=== PATIENT | male | born 1955 | race Caucasian/White ===

== ENCOUNTER 2024-05-22 07:27 | Emergency (ER) | payer MEDICARE, OTHER, SELFPAY ==
[2024-05-22] VITALS (73 sets, daily range): BP systolic 107–153; BP diastolic 62–91; PULSE 89–114; RESP 11–39; TEMP 36.4; O2SAT 89–100; BMI 19.0
--- NOTE | 2024-05-22 07:41 | DI.RAD.S_ITS ---
PROCEDURE: XR CHEST 1V INDICATIONS: Shortness of breath TECHNIQUE: One view of the chest was acquired. COMPARISON: None. FINDINGS: Surgical changes and devices: None. Lungs and pleura: Hazy airspace opacity in right infrahilar region is seen. Small left infrahilar infiltrate/atelectasis is also noted. No pleural effusions or pneumothorax. Mediastinum: Mediastinal contours appear normal. Heart size is normal. Bones and chest wall: No suspicious bony lesions. Overlying soft tissues appear unremarkable. IMPRESSION: Small bilateral infrahilar infiltrate/atelectasis. No pleural effusion or pneumothorax. Dictated by: Bo May M.D. on 05/22/2024 at 8:02 Approved by: Bo May M.D. on 05/22/2024 at 8:03
--- NOTE | 2024-05-22 07:48 | EKG_ITS ---
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
[2024-05-22] MEDS: ALBUTEROL 2.5 MG/3 ML NEB (ADULT) INH (07:59)
[2024-05-22 08:16] LABS: Add Manual Diff / Slide Review NO; Basophils Absolute Auto 100 /uL (0-100); Basophils Percent Auto 0.7 % (0-2); Eosinophils Absolute Auto 0 /uL (0-450); Eosinophils Percent Auto 0.1 % (2-4); Hematocrit 40.6 % (41-53); Hemoglobin 13.6 g/dL (13.5-17.5); Lymphocytes Absolute Auto 1200 /uL (1100-4500); Lymphocytes Percent Auto 11.7 % (25-40); Mean Corpuscular HGB Conc 33.6 % (30-36); Mean Corpuscular Volume 95.3 fL (80-100); Monocytes Absolute Auto 700 /uL (0-900); Neutrophils Absolute Auto 8100 /uL (1500-7000); Neutrophils Percent Auto 80.5 % (50-75); Platelet Count 141 X10^3/uL (150-400); Red Blood Cell Count 4.26 X10^6/uL (4.5-5.9); Red Cell Distribution Width 14.9 % (11.6-14.8)
[2024-05-22 08:19] LABS: INR 1.5 (0.9-1.3); Prothrombin Time 17.3 SECONDS (9.4-12.5)
[2024-05-22 08:29] LABS: Alanine Aminotransferase 358 IU/L (<50); Albumin 3.8 g/dL (3.5-5.0); Albumin Globulin Ratio 1.5 (1.0-2.8); Alkaline Phosphatase 123 U/L (38-126); Aspartate Aminotransferase 291 IU/L (17-59); BUN Creatinine Ratio 23.8 (6-22); Bilirubin Total 1.3 mg/dL (0.2-1.3); Blood Urea Nitrogen 39 mg/dL (9-20); Calcium 9.4 mg/dL (8.4-10.2); Carbon Dioxide 16 mmol/L (22-32); Chloride 108 mmol/L (98-107); Estimated Glomerular Filt Rate 45 mL/min (>60); Globulin 2.6 g/dL (1.7-4.1); Glucose 139 mg/dL (80-110); HEMOLYSIS < 15 (0-50); Potassium 4.5 mmol/L (3.4-5.1); Sodium 136 mmol/L (137-145); Total Protein 6.4 g/dL (6.3-8.2)
[2024-05-22 08:39] LABS: Lactate (Lactic Acid) 4.3 mmol/L (0.7-2.1)
[2024-05-22 09:00] LABS: Adenovirus Not Detected (Not Detect); B. parapertussis Not Detected (Not Detecte); Bordetella pertussis Not Detected (Not Detect); Chlamydophila pneumoniae Not Detected (Not Detect); Coronavirus 229E Not Detected (Not Detect); Coronavirus HKU1 Not Detected (Not Detect); Coronavirus NL 63 Not Detected (Not Detect); Coronavirus OC43 Not Detected (Not Detect); Human Metapneumovirus Not Detected (Not Detect); Human Rhinovirus/Enterovirus Not Detected (Not Detect); Influenza A Not Detected (Not Detect); Influenza B Not Detected (Not Detect); Mycoplasma pneumoniae Not Detected (Not Detect); Parainfluenza Virus 1 Not Detected (Not Detect); Parainfluenza Virus 2 Not Detected (Not Detect); Parainfluenza Virus 3 Not Detected (Not Detect); Parainfluenza Virus 4 Not Detected (Not Detect); Respiratory Syncytial Virus Not Detected (Not Detect); SARS- CoV-2 Not Detected (Not Detecte)
[2024-05-22 09:01] LABS: NT-proBNP (BNP-Adult 18+) 43300 pg/mL (<125)
--- NOTE | 2024-05-22 09:12 | ED_ITS ---
HPI - SOB/Dyspnea General Chief Complaint: Shortness of Breath/Dyspnea Stated Complaint: SOB Time Seen by Provider: 05/22/24 09:12 Source: patient, RN notes reviewed and old records reviewed Mode of arrival: Ambulatory Limitations: no limitations History of Present Illness HPI Narrative: 68-year-old male with history of chronic tobacco use presents with complaint of shortness of breath that started fairly abruptly about 3 or 4 days ago, patient states no chest pain or pressure, no fevers or chills, he has had a little bit of congestion and cough which he states has been mostly nonproductive. States no color to the small amount that has been productive. Denies any nausea or vomiting. Has had some diaphoresis. States any sort of movement or trying to walk around makes it much worse. States it is better when he is lying flat. Denies any swelling of his extremities. Denies any issues with bowel movements or urination. Has not had similar symptoms in the past. Patient does not have any daily medications, has not seen a physician in about 20 years, no prior surgeries. Smokes about half pack to a pack per day, 3-5 beers daily, no recreational drugs or marijuana. He is accompanied by his . Discussed patient's code status he states that he will discuss it when we get to that point. He is presumed full code until instructed otherwise. is at bedside for this discussion. They both state they have never had this discussion before. Patient does not have a primary care physician. Patient was noted to have systolic ejection murmur known history that patient is aware. Related Data Allergies Allergy/AdvReac Type Severity Reaction Status Date / Time No Known Drug Allergies Allergy Verified 05/22/24 07:42 Review of Systems Review of Systems ROS Unobtainable: All systems reviewed & are unremarkable except as noted in HPI and below Patient History Social History Smoking Status: Current every day smoker Smoking Status: Current every day smoker alcohol intake frequency: 3 or more drinks per day Substance Use Type: does not use Exam Narrative Exam Narrative: GENERAL: Alert and oriented x three, thin elderly appearing male in moderate distress. No diaphoresis. HEENT: Head normocephalic, atraumatic, EOMI, pupils reactive, face symmetric, moist mucous membranes NECK: Supple, full range of motion CARDIOVASCULAR: Tachycardic but regular rate and rhythm with 3/6 systolic ejection murmur best heard at the left lateral chest. no rubs, no gallops. No edema bilateral lower extremities. RESPIRATORY: Breath sounds equal bilaterally, no wheezes rales or rhonchi. No tachypnea or accessory muscle use. ABDOMEN: Soft, nontender. Normoactive bowel sounds all 4 quadrants. No guarding or rebound, rigidity, no mass : No CVA tenderness EXTREMITIES: Normal range of motion, no clubbing or edema. Neurovascularly intact NEUROLOGICAL: Cranial nerves II through XII grossly intact. Moving all extremities SKIN: Warm, dry, no petechiae, no rashes or lesions. Initial Vital Signs Initial Vital Signs: Vital Signs Pulse Rate 109 H 05/22/24 07:36 Respiratory Rate 30 H 05/22/24 07:36 Course Orders Ordered: ED Orders 05/22/24 07:41 XR chest 1V Stat EKG-12 Lead Stat Measure peak expiratory flow ONCE RT Consult Eval and Treat NOW 05/22/24 07:57 Complete Blood Count AUTO DIFF Stat Comprehensive Metabolic Panel Stat Lactate (Lactic Acid) Stat NT-proBNP (BNP-Adult 18+) Stat Prothrombin Time INR Stat Troponin I Stat 05/22/24 07:59 Respiratory Panel (Film Array) Stat 05/22/24 09:20 CT angio chest PE protocol Stat 05/22/24 09:30 PTT Partial Thromboplastin Esteban Q6H 05/22/24 09:55 Trop I [Troponin I] Stat 05/22/24 10:16 EKG-12 Lead Routine 05/22/24 10:39 EC echo doppler complete Stat 05/22/24 14:49 PTT Partial Thromboplastin Esteban Q6H 05/22/24 21:30 PTT Partial Thromboplastin Esteban Q6H 05/23/24 03:30 PTT Partial Thromboplastin Esteban Q6H 05/23/24 05:00 Hemoglobin and Hematocrit DAILY Platelet Count DAILY 05/24/24 05:00 Hemoglobin and Hematocrit DAILY Platelet Count DAILY Heparin Sodium/Dextrose (Heparin Drip) 25,000 unit in 500 mls @ 13.608 mls/hr IV CONT SIMI; Protocol Last Admin: 05/22/24 09:38 Dose: 12 units/kg/hr, 13.608 mls/hr Documented By: RB Co-signed By: KM Discontinued Medications Albuterol (Albuterol 2.5 Mg/3 Ml Neb (Adult)) 2.5 mg INH NOW ONE Stop: 05/22/24 07:55 Last Admin: 05/22/24 07:59 Dose: 2.5 mg Documented By: KIERA Furosemide (Furosemide 40 Mg/4 Ml Vial) 40 mg IV NOW ONE Stop: 05/22/24 09:21 Last Admin: 05/22/24 09:33 Dose: 40 mg Documented By: RB Heparin Sodium (Porcine) (Heparin 5,000 Unit/Ml Vial) 3,500 unit 60 unit/kg (3500 unit) IV NOW ONE Stop: 05/22/24 09:21 Last Admin: 05/22/24 09:36 Dose: 3,500 unit Documented By: RB Heparin Sodium (Porcine) (Heparin 5,000 Unit/Ml Vial) 1,500 unit 25 unit/kg (1500 unit) IV NOW ONE Stop: 05/22/24 15:19 Vital Signs Vital signs: Vital Signs - 8 hr 05/22/24 07:36 05/22/24 07:37 05/22/24 07:38 Temperature 97.6 F Pulse Rate 109 H 108 H 107 H Respiratory Rate 30 H 20 27 H Blood Pressure 121/67 Pulse Oximetry 100 100 Oxygen Delivery Method Room Air 05/22/24 07:38 05/22/24 08:00 05/22/24 08:00 Temperature Pulse Rate 105 H Respiratory Rate 25 H Blood Pressure 121/67 133/74 Pulse Oximetry 97 Oxygen Delivery Method 05/22/24 08:03 05/22/24 08:30 05/22/24 08:30 Temperature Pulse Rate 108 H 101 H Respiratory Rate 24 18 Blood Pressure 120/67 Pulse Oximetry 100 95 Oxygen Delivery Method Room Air 05/22/24 09:00 05/22/24 09:00 05/22/24 09:15 Temperature Pulse Rate 102 H 102 H Respiratory Rate 23 27 H Blood Pressure 122/75 Pulse Oximetry 97 99 Oxygen Delivery Method 05/22/24 09:15 05/22/24 09:20 05/22/24 09:20 Temperature Pulse Rate 102 H Respiratory Rate 30 H Blood Pressure 121/76 118/79 Pulse Oximetry 96 Oxygen Delivery Method 05/22/24 09:25 05/22/24 09:25 05/22/24 09:30 Temperature Pulse Rate 103 H 101 H Respiratory Rate 27 H 26 H Blood Pressure 119/69 Pulse Oximetry 98 98 Oxygen Delivery Method 05/22/24 09:30 05/22/24 09:35 05/22/24 09:35 Temperature Pulse Rate 101 H Respiratory Rate 28 H Blood Pressure 111/75 113/74 Pulse Oximetry 96 Oxygen Delivery Method 05/22/24 09:40 05/22/24 09:40 05/22/24 09:57 Temperature Pulse Rate 103 H 101 H Respiratory Rate 22 27 H Blood Pressure 118/77 Pulse Oximetry 97 96 Oxygen Delivery Method 05/22/24 09:57 05/22/24 10:00 05/22/24 10:00 Temperature Pulse Rate 101 H Respiratory Rate 36 H Blood Pressure 117/71 125/74 Pulse Oximetry 96 Oxygen Delivery Method 05/22/24 10:05 05/22/24 10:05 05/22/24 10:10 Temperature Pulse Rate 114 H 94 H Respiratory Rate 39 H 32 H Blood Pressure 142/91 H Pulse Oximetry 96 89 L Oxygen Delivery Method 05/22/24 10:10 05/22/24 10:16 05/22/24 10:16 Temperature Pulse Rate 102 H Respiratory Rate 24 Blood Pressure 153/89 H 119/76 Pulse Oximetry 99 Oxygen Delivery Method 05/22/24 10:20 05/22/24 10:20 05/22/24 10:25 Temperature Pulse Rate 102 H Respiratory Rate 24 Blood Pressure 121/75 121/75 Pulse Oximetry 99 Oxygen Delivery Method 05/22/24 10:25 05/22/24 10:30 05/22/24 10:30 Temperature Pulse Rate 100 H 101 H Respiratory Rate 25 H 17 Blood Pressure 131/80 Pulse Oximetry 96 97 Oxygen Delivery Method 05/22/24 10:35 05/22/24 10:35 05/22/24 10:40 Temperature Pulse Rate 99 H Respiratory Rate 22 Blood Pressure 123/74 125/85 Pulse Oximetry 96 Oxygen Delivery Method 05/22/24 10:40 05/22/24 10:45 05/22/24 10:45 Temperature Pulse Rate 99 H 99 H Respiratory Rate 27 H Blood Pressure 121/77 Pulse Oximetry 97 94 Oxygen Delivery Method 05/22/24 10:50 05/22/24 10:50 05/22/24 10:55 Temperature Pulse Rate 98 H Respiratory Rate 27 H Blood Pressure 118/77 116/77 Pulse Oximetry 96 Oxygen Delivery Method 05/22/24 10:55 05/22/24 11:00 05/22/24 11:00 Temperature Pulse Rate 99 H 100 H Respiratory Rate Blood Pressure 121/80 Pulse Oximetry 95 94 Oxygen Delivery Method 05/22/24 11:05 05/22/24 11:05 05/22/24 11:10 Temperature Pulse Rate 97 H Respiratory Rate Blood Pressure 123/81 125/75 Pulse Oximetry 95 Oxygen Delivery Method 05/22/24 11:10 05/22/24 11:15 05/22/24 11:15 Temperature Pulse Rate 96 H 97 H Respiratory Rate 20 19 Blood Pressure 124/77 Pulse Oximetry 97 96 Oxygen Delivery Method 05/22/24 11:20 05/22/24 11:20 05/22/24 11:25 Temperature Pulse Rate 97 H Respiratory Rate 23 Blood Pressure 122/76 118/74 Pulse Oximetry Oxygen Delivery Method 05/22/24 11:25 05/22/24 11:30 05/22/24 11:30 Temperature Pulse Rate 95 H 95 H Respiratory Rate 17 23 Blood Pressure 119/76 Pulse Oximetry Oxygen Delivery Method 05/22/24 11:35 05/22/24 11:35 05/22/24 11:40 Temperature Pulse Rate 99 H Respiratory Rate 25 H Blood Pressure 123/80 125/83 Pulse Oximetry Oxygen Delivery Method 05/22/24 11:40 05/22/24 12:00 05/22/24 12:00 Temperature Pulse Rate 97 H 95 H Respiratory Rate 27 H 20 Blood Pressure 125/67 Pulse Oximetry 96 Oxygen Delivery Method 05/22/24 12:05 05/22/24 12:05 05/22/24 12:10 Temperature Pulse Rate 96 H Respiratory Rate 24 Blood Pressure 112/67 138/71 Pulse Oximetry 99 Oxygen Delivery Method 05/22/24 12:10 05/22/24 12:15 05/22/24 12:15 Temperature Pulse Rate 95 H 94 H Respiratory Rate 30 H 18 Blood Pressure 126/69 Pulse Oximetry 98 97 Oxygen Delivery Method 05/22/24 12:20 05/22/24 12:20 05/22/24 12:25 Temperature Pulse Rate 94 H Respiratory Rate 24 Blood Pressure 116/69 119/73 Pulse Oximetry 99 Oxygen Delivery Method 05/22/24 12:25 05/22/24 12:30 05/22/24 12:30 Temperature Pulse Rate 96 H 101 H Respiratory Rate 30 H 33 H Blood Pressure 129/78 Pulse Oximetry 98 96 Oxygen Delivery Method 05/22/24 12:35 05/22/24 12:35 05/22/24 12:40 Temperature Pulse Rate 97 H Respiratory Rate 19 Blood Pressure 123/70 126/73 Pulse Oximetry 97 Oxygen Delivery Method 05/22/24 12:40 05/22/24 12:45 05/22/24 12:45 Temperature Pulse Rate 93 H 93 H Respiratory Rate 16 16 Blood Pressure 117/67 Pulse Oximetry 96 99 Oxygen Delivery Method 05/22/24 12:50 05/22/24 12:50 05/22/24 12:55 Temperature Pulse Rate 92 H Respiratory Rate 28 H Blood Pressure 116/68 113/69 Pulse Oximetry 100 Oxygen Delivery Method 05/22/24 12:55 05/22/24 13:00 05/22/24 13:00 Temperature Pulse Rate 93 H 94 H Respiratory Rate 28 H 19 Blood Pressure 132/68 Pulse Oximetry 98 97 Oxygen Delivery Method 05/22/24 13:05 05/22/24 13:05 05/22/24 13:10 Temperature Pulse Rate 93 H Respiratory Rate 14 Blood Pressure 122/70 119/71 Pulse Oximetry 97 Oxygen Delivery Method 05/22/24 13:10 05/22/24 13:15 05/22/24 13:15 Temperature Pulse Rate 93 H 94 H Respiratory Rate 23 16 Blood Pressure 117/67 Pulse Oximetry 99 97 Oxygen Delivery Method 05/22/24 13:20 05/22/24 13:20 05/22/24 13:25 Temperature Pulse Rate 92 H 92 H Respiratory Rate 15 19 Blood Pressure 120/69 Pulse Oximetry 97 98 Oxygen Delivery Method 05/22/24 13:25 05/22/24 13:30 05/22/24 13:30 Temperature Pulse Rate 92 H Respiratory Rate 21 Blood Pressure 116/67 117/66 Pulse Oximetry 99 Oxygen Delivery Method 05/22/24 13:35 05/22/24 13:35 05/22/24 13:40 Temperature Pulse Rate 96 H Respiratory Rate 26 H Blood Pressure 115/70 108/67 Pulse Oximetry 97 Oxygen Delivery Method 05/22/24 13:40 05/22/24 13:45 05/22/24 13:45 Temperature Pulse Rate 91 H 93 H Respiratory Rate 25 H 26 H Blood Pressure 112/66 Pulse Oximetry 98 97 Oxygen Delivery Method 05/22/24 13:50 05/22/24 13:50 05/22/24 13:55 Temperature Pulse Rate 95 H Respiratory Rate 26 H Blood Pressure 116/75 114/71 Pulse Oximetry 95 Oxygen Delivery Method 05/22/24 13:55 05/22/24 14:00 05/22/24 14:00 Temperature Pulse Rate 92 H 91 H Respiratory Rate 16 14 Blood Pressure 107/65 Pulse Oximetry 96 97 Oxygen Delivery Method MDM - SOB/Dyspnea Lab Data 05/22/24 07:57 05/22/24 07:57 Labs: Lab Results 05/22/24 05/22/24 05/22/24 Range/Units 07:57 07:59 09:30 WBC 10.0 (4.5-11.0) X10^3/uL RBC 4.26 L (4.5-5.9) X10^6/uL Hgb 13.6 (13.5-17.5) g/dL Hct 40.6 L (41-53) % MCV 95.3 (80-100) fL MCH 32.0 (26-34) PG MCHC 33.6 (30-36) % RDW 14.9 H (11.6-14.8) % Plt Count 141 L (150-400) X10^3/uL Neut % (Auto) 80.5 H (50-75) % Lymph % (Auto) 11.7 L (25-40) % Walker % (Auto) 7.0 (3-14) % Eos % (Auto) 0.1 L (2-4) % Baso % (Auto) 0.7 (0-2) % Neut # (Auto) 8100 H (9872-7207) /uL Lymph # (Auto) 1200 (0963-4868) /uL Walker # (Auto) 700 (0-900) /uL Eos # (Auto) 0 (0-450) /uL Baso # (Auto) 100 (0-100) /uL PT 17.3 H (9.4-12.5) SECONDS INR 1.5 H (0.9-1.3) APTT 31 (25.1-36.5) SECONDS Sodium 136 L (137-145) mmol/L Potassium 4.5 (3.4-5.1) mmol/L Chloride 108 H (98-107) mmol/L Carbon Dioxide 16 L (22-32) mmol/L BUN 39 H (9-20) mg/dL Creatinine 1.64 H (0.66-1.25) mg/dL Estimated GFR 45 L (>60) mL/min BUN/Creatinine Ratio 23.8 H (6-22) Glucose 139 H (80-110) mg/dL Lactate 4.3 H* (0.7-2.1) mmol/L Calcium 9.4 (8.4-10.2) mg/dL Total Bilirubin 1.3 (0.2-1.3) mg/dL AST 291 H (17-59) IU/L ALT 358 H (<50) IU/L Alkaline Phosphatase 123 (38-126) U/L Troponin I 3.530 H* (0.01-0.034) ng/mL NT-Pro-B Natriuret Pep 56736 H (<125) pg/mL Total Protein 6.4 (6.3-8.2) g/dL Albumin 3.8 (3.5-5.0) g/dL Globulin 2.6 (1.7-4.1) g/dL Albumin/Globulin Ratio 1.5 (1.0-2.8) Chlamy pneumoniae PCR Not detected (Not Detect) Adenovirus (PCR) Not detected (Not Detect) B. pertussis DNA (PCR) Not detected (Not Detect) B.parapertussis DNA PCR Not detected (Not Detecte) Coronavirus OC43 (PCR) Not detected (Not Detect) Coronavirus HKU1 (PCR) Not detected (Not Detect) Coronavirus 229E (PCR) Not detected (Not Detect) SARS-CoV-2 (PCR) Not detected (Not Detecte) Coronavirus NL63 (PCR) Not detected (Not Detect) Human Metapneumovir PCR Not detected (Not Detect) Influenza Type A (PCR) Not detected (Not Detect) Influenza Type B (PCR) Not detected (Not Detect) M. pneumoniae (PCR) Not detected (Not Detect) Parainfluenza 1 (PCR) Not detected (Not Detect) Parainfluenza 2 (PCR) Not detected (Not Detect) Parainfluenza 3 (PCR) Not detected (Not Detect) Parainfluenza 4 (PCR) Not detected (Not Detect) RSV (PCR) Not detected (Not Detect) Entero/Rhino (PCR) Not detected (Not Detect) 05/22/24 05/22/24 Range/Units 09:55 14:49 WBC (4.5-11.0) X10^3/uL RBC (4.5-5.9) X10^6/uL Hgb (13.5-17.5) g/dL Hct (41-53) % MCV (80-100) fL MCH (26-34) PG MCHC (30-36) % RDW (11.6-14.8) % Plt Count (150-400) X10^3/uL Neut % (Auto) (50-75) % Lymph % (Auto) (25-40) % Walker % (Auto) (3-14) % Eos % (Auto) (2-4) % Baso % (Auto) (0-2) % Neut # (Auto) (7002-6880) /uL Lymph # (Auto) (0705-5971) /uL Walker # (Auto) (0-900) /uL Eos # (Auto) (0-450) /uL Baso # (Auto) (0-100) /uL PT (9.4-12.5) SECONDS INR (0.9-1.3) APTT 40 H D (25.1-36.5) SECONDS Sodium (137-145) mmol/L Potassium (3.4-5.1) mmol/L Chloride (98-107) mmol/L Carbon Dioxide (22-32) mmol/L BUN (9-20) mg/dL Creatinine (0.66-1.25) mg/dL Estimated GFR (>60) mL/min BUN/Creatinine Ratio (6-22) Glucose (80-110) mg/dL Lactate 2.1 (0.7-2.1) mmol/L Calcium (8.4-10.2) mg/dL Total Bilirubin (0.2-1.3) mg/dL AST (17-59) IU/L ALT (<50) IU/L Alkaline Phosphatase (38-126) U/L Troponin I 2.850 H* (0.01-0.034) ng/mL NT-Pro-B Natriuret Pep (<125) pg/mL Total Protein (6.3-8.2) g/dL Albumin (3.5-5.0) g/dL Globulin (1.7-4.1) g/dL Albumin/Globulin Ratio (1.0-2.8) Chlamy pneumoniae PCR (Not Detect) Adenovirus (PCR) (Not Detect) B. pertussis DNA (PCR) (Not Detect) B.parapertussis DNA PCR (Not Detecte) Coronavirus OC43 (PCR) (Not Detect) Coronavirus HKU1 (PCR) (Not Detect) Coronavirus 229E (PCR) (Not Detect) SARS-CoV-2 (PCR) (Not Detecte) Coronavirus NL63 (PCR) (Not Detect) Human Metapneumovir PCR (Not Detect) Influenza Type A (PCR) (Not Detect) Influenza Type B (PCR) (Not Detect) M. pneumoniae (PCR) (Not Detect) Parainfluenza 1 (PCR) (Not Detect) Parainfluenza 2 (PCR) (Not Detect) Parainfluenza 3 (PCR) (Not Detect) Parainfluenza 4 (PCR) (Not Detect) RSV (PCR) (Not Detect) Entero/Rhino (PCR) (Not Detect) Imaging Data Chest x-ray: Radiologist's Impression: [place] [address] XRay Report Signed Patient: Tremayne Barakat MR#: [id number] : 1955 Acct:[id number] Age/Sex: 68 / M Date of Service: 05/22/24 Loc: ED Accession Number: [id number] Procedure: XR chest 1V Ordering Provider: Elle Hui D.O. PROCEDURE: XR CHEST 1V INDICATIONS: Shortness of breath TECHNIQUE: One view of the chest was acquired. COMPARISON: None. FINDINGS: Surgical changes and devices: None. Lungs and pleura: Hazy airspace opacity in right infrahilar region is seen. Small left infrahilar infiltrate/atelectasis is also noted. No pleural effusions or pneumothorax. Mediastinum: Mediastinal contours appear normal. Heart size is normal. Bones and chest wall: No suspicious bony lesions. Overlying soft tissues appear unremarkable. IMPRESSION: Small bilateral infrahilar infiltrate/atelectasis. No pleural effusion or pneumothorax. Dictated by: Bo May M.D. on 05/22/2024 at 8:02 Approved by: Bo May M.D. on 05/22/2024 at 8:03 ECG Data Attestation: I personally reviewed and interpreted this ECG as follows: Prior ECG tracings: not available for review Interpretation: Sinus tachycardia rate of 108 NV 180 QRS of 126 QTC of 530, right bundle-branch block no ST elevation patient does have T-wave inversion with depression in lateral leads. Has Q-waves in 2 3 AVF with no prior EKG for comparison. Sinus tachycardia, rate of 102 NV 144 QRS of 138 QTC of 523, right bundle- branch, left anterior fascicular block. No acute dynamic changes no new elevation in ST segments does have same T-wave inversion and depression. MDM Narrative Medical decision making narrative: 68-year-old male with complaint of shortness of breath for the past 3 or 4 days patient is slightly tachycardic and tachypneic no hypoxia no hypotension. Labs show white count of 10 hemoglobin of 13.6 platelets of 141 predominance of neutrophils. INR is 1.5 sodium is 136 potassium 4.5 chloride 108 CO2 16 with a BUN of 39 creatinine of 1.64 glucose of 139 lactate 4.3 non repeat has normalized to 2.1, bilirubin is 1.3 with a AST of 291 and ALT of 358 alk-phos is 123, troponin is positive at 3.530 [place] [address]. Patient does not have any priors for comparison. Troponin was repeated still positive but does trend downwards is 2.85 EKG sinus tach, right bundle-branch block, T-wave inversion with depression lateral leads. No priors for comparison. No acute dynamic changes on repeat EKG. Chest x-ray shows small bilateral frontal hilar infiltrate/atelectasis no pleural effusion or pneumothorax. Respiratory panel is negative. CT chest shows no PE, right greater than left bilateral pleural effusions small to moderate in the right and small left pleural effusion of the left with compressive atelectasis and posterior aspect of bilateral lung mccollum and subtle hazy ground-glass opacities consistent with pulmonary edema. Heart size is enlarged, no pericardial effusion thoracic aorta measures up to 4 cm largest AP diameter with two-vessel coronary atherosclerotic calcifications seen. Enlarged lymph nodes. Patient received albuterol initially on arrival. Tachypnea slightly improved. Continues to be tachycardic states minimal to no improvement with breathing treatment. Patient was found to have a systolic ejection murmur and workups concerning for potential CHF, demand ischemia versus NSTEMI. Patient does not have any prior EKGs or labs for comparison. Patient is sent for CT chest to rule out PE although seems more likely to be cardiac issue. Patient initially received albuterol neb. minimal improvement. Patient was started on heparin. Was given a dose of Lasix. We will monitor closely as patient does have a systolic ejection murmur and there is possibility of aortic stenosis causing potential CHF and/NSTEMI demand ischemia. We will monitor patient's fluid status closely. Attempting to obtain ECHO. Discussed patient's code status, he states he will discuss it when he gets to that point. This time presumed full code. We also discussed potential need for transfer patient states would like to think about this before making any decisions. After discussion patient is amenable to transfer. Dr. Vidal hospitalist accepts for transfer at [facility]. Discussed attempting to get echo waiting potential results. Patient currently on heparin drip did receive Lasix, reviewed labs, imaging and patient. ECHO report shows severe enlarged left ventricle with severely reduced systolic function EF of 15-20%. Mildly enlarged right ventricle with moderately reduced function left atrium severely dilated moderate to severe aortic stenosis. Moderate to severe aortic regurg. [id number] mitral regurg. Moderate tricuspid regurg. Right ventricular systolic pressure estimated to be 59 mm no prior echo available for comparison. Updated patient on findings from today. Critical Care Time Critical Care Time Critical Care Time: Yes Total Critical Care Time: 40 Attestation: The high probability of a clinically significant, sudden or life threatening deterioration of the cardiac and pulmonary system(s) required my full and direct attention, intervention and personal management. The aggregate critical care time was [--] minutes. This time is in addition to time spent performing reported procedures but includes the following: [x] Data Review and interpretation [x] Patient assessment and monitoring of vital signs [x] Documentation [x] Medication orders and management Discharge Plan Departure Patient Disposition: Xfer [facility] Clinical Impression: Non-ST elevation LA (NSTEMI), CHF (congestive heart failure), Aortic stenosis
--- NOTE | 2024-05-22 09:20 | DI.CT.S_ITS ---
PROCEDURE: CT ANGIO CHEST PE PROTOCOL INDICATIONS: chf, mi, murmur r/o PE TECHNIQUE: After the administration of intravenous contrast, 2 mm thick sections acquired from the pulmonary apices to the posterior costophrenic angles. 3-dimensional maximum intensity projection (MIP) coronal and sagittal reformats were then acquired through the thorax. For radiation dose reduction, the following was used: automated exposure control, adjustment of mA and/or kV according to patient size. COMPARISON: [facility], CR, XR CHEST 1V, 05/22/2024, 7:46. FINDINGS: Image quality: Diagnostic. Pulmonary arteries: Pulmonary arteries are normal in size, and demonstrate no intraluminal filling defects to suggest central pulmonary embolism. Lower Neck: No enlarged lymph nodes. Thyroid: No thyroid nodules which require sonographic follow up, per consensus guidelines. Axillae: No enlarged lymph nodes. Chest Wall: Unremarkable. Bones: No aggressive appearing bony lesions.. Lungs and Pleura: Small to moderate right pleural effusion and small left pleural effusion is seen. There is compressive atelectasis in posterior aspect of bilateral lung mccollum. Subtle hazy ground-glass opacities are noted scattered in bilateral lung mccollum. No pneumothorax. No suspicious pulmonary nodule is seen in bilateral aerated lung mccollum. Heart: Heart size is enlarged. No pericardial effusion. Thoracic Vessels: Thoracic aorta measures up to 4 cm in largest AP diameter series 4, image 80. 2 vessel coronary artery atherosclerotic calcifications are seen. Mediastinum and Radha: Enlarged lymph nodes are noted in mediastinum and bilateral hilar region measures up to 11 mm in short axis diameter in right paratracheal space and right hilum. Esophagus: No wall thickening. No hiatal hernia. Upper Abdomen: Visualized upper abdomen solid organs and bowel loops appear normal. IMPRESSION: 1. No pulmonary embolus. 2. Right greater than left bilateral pleural effusion with dependent atelectasis in posterior aspect of bilateral lung mccollum. Mild pulmonary edema. No pneumothorax. Airway is patent. 3. Mild cardiomegaly, no pericardial effusion. Mild aneurysmal dilatation of ascending thoracic aorta measures up to 4 cm in largest AP diameter. 4. Enlarged mediastinal and hilar lymph nodes which may be reactive in nature. Dictated by: Bo May M.D. on 05/22/2024 at 10:19 Approved by: Bo May M.D. on 05/22/2024 at 10:30
[2024-05-22] MEDS: FUROSEMIDE 40 MG/4 ML VIAL IV (09:33)
[2024-05-22] MEDS: HEPARIN 5,000 UNIT/ML VIAL 3500 UNIT IV (09:36)
[2024-05-22] MEDS: HEPARIN DRIP 25,000 UNIT/500 ML IV.SOLN 13.608 UNIT IV (09:38)
[2024-05-22 09:43] LABS: Reflexed Lactate in 2 Hours Y
[2024-05-22 09:50] LABS: PTT Partial Thromboplastin Tim 31 SECONDS (25.1-36.5)
[2024-05-22 10:15] LABS: Lactate 2HR (Lactic Acid Rflx) 2.1 mmol/L (0.7-2.1)
--- NOTE | 2024-05-22 10:16 | EKG_ITS ---
[address] [address] Test Date: 2024-05-22 Pat Name: Tremayne Barakat Department: Room: Gender: Male Scoop Operator: TUTU : 1955 Requested By: Order Number: [id number] Reading MD: Wade Lora Measurements Intervals [place] Rate: 102 P: 53 OR: 144 QRS: -64 QRSD: 138 T: 79 QT: 402 QTc: 523 Interpretive Statements Sinus tachycardia Possible Left atrial enlargement Right bundle branch block Left anterior fascicular block Bifascicular block Electronically Signed On 05-22-2024 14:44:41 PDT by Wade Lora
--- NOTE | 2024-05-22 10:39 | DI.ECHO.S_ITS ---
[facility]---------+ [facility] : : [address] : [place] : : [id number] : : Phone: [phone] Echocardiogram Report + + :Name: DON HUERTA Study Date: 05/22/2024 Height: 68 in : :Hospital ReadingLocation: Weight: 125 lb : : Gender: Male BSA: 1.7 m2 : :: 1955 Age: 68 yrs BP: 116/77 mmHg: :Reason For Study: SHORTNESS OF BREATH, NSTEMI, CHF, +MAINOR : :Ordering Physician: JOHANNY, : :LUTHER Performed By: Celia Ramsey : :Referring: LUTHER ORLANDO : + + Interpretation Summary 1) Severely enlarged left ventricle with severely reduced systolic function (EF 15-20%). 2) Mildly enlarged right ventricle with moderately reduced function. 3) The left atrium is severely dilated. 4) There is moderate to severe aortic stenosis (valve area 1.0cm2, mean gradient 12mmHg, severity ratio 0.25). 5) There is moderate to severe aortic regurgitation. 6) There is mild to moderate mitral regurgitation. 7) There is moderate tricuspid regurgitation. 8) The right ventricular systolic pressure is estimated to be at least 59 mmHg based on an estimated right atrial pressure of 15 mm Hg. 9) No prior Echo available for comparison. Procedure: A two-dimensional transthoracic echocardiogram with color flow and Doppler was performed. The study quality was technically good. There is no prior echocardiogram noted for this patient. The heart rate ranged between 96- 105 bpm during the study. Left Ventricle: The left ventricle is severely dilated. There is normal left ventricular wall thickness. The ejection fraction is estimated to be 15-20%. There is severe global hypokinesis of the left ventricle. Right Ventricle: The right ventricle is mildly dilated. Right ventricular systolic function is moderately reduced. Atria: The left atrium is severely dilated. The right atrium is moderately dilated. There is no Doppler evidence for an interatrial shunt. Mitral Valve: The mitral valve leaflets are slightly calcified. The mitral valve leaflets appear mildly thickened, but open well. There is mild to moderate mitral regurgitation. Aortic Valve: The aortic valve is severely calcified. There is severely reduced leaflet mobility. The peak aortic velocity is 2.4 m/sec. The aortic valve mean gradient is 12 mmHg. There is moderate to severe aortic stenosis. There is moderate to severe aortic regurgitation. Tricuspid Valve: The tricuspid valve leaflets are thickened and/or calcified, but open well. There is moderate tricuspid regurgitation. The right ventricular systolic pressure is estimated to be at least 59 mmHg based on an estimated right atrial pressure of 15 mm Hg. Pulmonic Valve: The pulmonic valve is not well visualized. There is no pulmonic valvular regurgitation. Great Vessels: The aortic root is normal size. The ascending aorta could not be visualized. The IVC is dilated (diameter is greater than 2.1 cm) and it collapses less than 50% with a sniff. This suggests a high right atrial pressure of 15 mm Hg. Pericardium/ Pleura There is no pericardial effusion. There is no pleural effusion. MMode/2D Measurements & Calculations LVIDd: 6.8 cm LVOT diam: 2.2 cm LVIDs: 6.2 cm Ao root diam: 3.7 cm FS: 8.2 % Ao Arch Diam (Prox Trans): 3.1 cm EPSS: 2.4 cm IVSd: 0.73 cm LVPWd: 0.85 cm LV brito. diameter/BSA (cm/m^2): 4.1 LV sys. diameter/BSA (cm/m^2): 3.7 LA A2 area: 28.6 cm2 RA long axis: 5.3 cm LA A4 area: 26.7 cm2 RA area: 22.8 cm2 LA length (vol): 6.5 cm RA vol: 82.8 ml LA vol: 100.5 ml RA : 49.5 ml/m2 LA vol index: 60.1 ml/m2 IVC diam: 2.4 cm RVD1 (basal): 4.2 cm RVD2 (mid): 3.6 cm TAPSE: 1.3 cm Doppler Measurements & Calculations Ao V2 max: 239.8 cm/sec LVOT Max Home: 65.3 cm/sec Ao V2 mean: 159.6 cm/sec LV V1 max P.7 mmHg Ao max P.0 mmHg LV V1 VTI: 8.6 cm Ao mean P.9 mmHg BUSTER(I,D): 0.96 cm2 Ao V2 VTI: 34.4 cm BUSTER(V,D): 1.0 cm2 sev ratio: 0.25 BUSTER indexed to BSA (cm^2/m^2): 0.57 AI P1/2t: 240.8 msec AI dec slope: 486.6 cm/sec2 MV E max home: 59.2 cm/sec TR max home: 330.5 cm/sec Med Peak E' Home: 3.2 cm/sec TR max P.7 mmHg E/E' med: 18.7 Lat Peak E' Home: 7.5 cm/sec E/E' lat: 7.9 E/e' average: 13.3 MV P1/2t: 86.8 msec MR ERO: 0.14 cm2 MV P1/2t max home: 58.7 cm/sec MR PISA: 2.0 cm2 MVA(P1/2t): 2.5 cm2 MR flow rate: 70.4 cm3/sec MR PISA radius: 0.57 cm SV(LVOT): 32.9 ml Reading Physician:12:22 PM
[2024-05-22 15:16] LABS: PTT Partial Thromboplastin Tim 40 SECONDS (25.1-36.5)
[2024-05-22] MEDS: HEPARIN 5,000 UNIT/ML VIAL 1500 UNIT IV (15:24)
== END 2024-05-22 15:28 | disposition short-term general hospital (02) ==
PROVIDERS: Emergency Provider Emergency Medicine
DX: I21.4 Non-ST elevation (NSTEMI) myocardial infarction (principal); I50.9 Heart failure, unspecified; I35.0 Nonrheumatic aortic (valve) stenosis; R00.0 Tachycardia, unspecified; I45.2 Bifascicular block; Z11.52 Encounter for screening for COVID-19
CPT/HCPCS: 36415; 71045; 71275; 80053; 83605; 83880; 84484; 85025; 85610; 85730; 87633; 93005; 93306; 94640; 96365; 96375; 96376; 99284; 99291; J1644; J1940; J7613; Q9967

== ENCOUNTER 2024-06-06 19:28 | Emergency (ER) | payer MEDICARE, OTHER, SELFPAY ==
[2024-06-06] VITALS (18 sets, daily range): BP systolic 79–113; BP diastolic 50–65; PULSE 86–108; RESP 18–23; TEMP 36.9; O2SAT 98–100
--- NOTE | 2024-06-06 19:38 | ED.MALEGU ---
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 Of note, most history obtained from EMS and from records obtained from [facility] as patient and are both poor historians. Patient had Jackson catheter placed approximately 2 weeks ago at [facility] for urinary retention. He was started on Eliquis for his LV thrombus (per note pt did not want to take warfarin). He was noted to have mild hematuria, but urology apparently had minimal concern, patient had stable hemoglobin during his stay, and patient was deemed stable for outpatient follow up. at bedside states that yesterday patient to have dark blood in his Jackson catheter that worsened throughout the day. This evening he was unable to void into the Jackson bag and they called 911. Related Data Allergies Allergy/AdvReac Type Severity Reaction Status Date / Time No Known Drug Allergies Allergy Verified 05/22/24 07:42 Patient History Social History Smoking Status: Current every day smoker Smoking Status: Current every day smoker alcohol intake frequency: 3 or more drinks per day Substance Use Type: does not use Exam Initial Vital Signs Initial Vital Signs: Vital Signs Blood Pressure 99/54 L 06/06/24 19:33 Const: Awake, alert, frail, ill appearing, in pain Cardiac: tachycardia, regular rhythm RESP: unlabored, clear bilaterally, no wheezing GI: Soft, suprapubic tenderness to palpation : [employer] ebs consultant present, soft, nontender swelling around distal penile shaft, meatus normal. Claribel blood coming from ajckson catheter Skin: Warm, Dry, pale, no rashes Neuro: AO x3, CN II-XII grossly intact, moves all extremities Course Orders Ordered: Discontinued Medications Fentanyl (Fentanyl 100 Mcg/2 Ml Inj) 100 mcg IV NOW ONE Stop: 06/07/24 01:06 Last Admin: 06/07/24 01:08 Dose: 100 mcg Documented By: NICOLE Sodium Chloride (Normal Saline 0.9%) 1,000 mls @ 1,000 mls/hr IV BOLUS ONE Stop: 06/07/24 00:17 Last Infusion: 06/07/24 00:25 Dose: Infused Documented By: Admin: 06/06/24 23:21 Dose: 1,000 mls/hr Documented By: Ceftriaxone Sodium 1,000 mg/ (Sodium Chloride) 100 mls @ 200 mls/hr IV NOW ONE Stop: 06/06/24 23:27 Last Infusion: 06/07/24 00:20 Dose: Infused Documented By: Admin: 06/06/24 23:49 Dose: 200 mls/hr Documented By: Lidocaine HCl (Lidocaine 2% (Glydo) 6 Ml Gel) 6 ml TOP NOW ONE Stop: 06/06/24 19:43 Last Admin: 06/06/24 20:05 Dose: 6 ml Documented By: Morphine Sulfate (Morphine 4 Mg/Ml Inj) 4 mg IV NOW ONE Stop: 06/06/24 22:27 Last Admin: 06/06/24 22:31 Dose: 4 mg Documented By: Vital Signs Vital signs: Vital Signs - 8 hr 06/06/24 23:00 06/06/24 23:00 06/06/24 23:05 Pulse Rate 90 Respiratory Rate Blood Pressure 81/52 L 79/50 L Pulse Oximetry 98 Oxygen Delivery Method 06/06/24 23:05 06/06/24 23:06 06/06/24 23:06 Pulse Rate 92 H 91 H Respiratory Rate Blood Pressure 79/52 L Pulse Oximetry 100 99 Oxygen Delivery Method Room Air 06/06/24 23:10 06/06/24 23:10 06/06/24 23:20 Pulse Rate 91 H 88 Respiratory Rate 22 20 Blood Pressure 80/50 L Pulse Oximetry 98 99 Oxygen Delivery Method 06/06/24 23:20 06/06/24 23:30 06/06/24 23:30 Pulse Rate 86 Respiratory Rate 21 Blood Pressure 83/54 L 89/52 L Pulse Oximetry 99 Oxygen Delivery Method 06/06/24 23:40 06/06/24 23:40 06/06/24 23:50 Pulse Rate 86 90 Respiratory Rate 21 23 Blood Pressure 91/55 L Pulse Oximetry 100 100 Oxygen Delivery Method Room Air 06/06/24 23:50 06/06/24 23:54 06/06/24 23:54 Pulse Rate 86 Respiratory Rate 19 Blood Pressure 85/52 L 85/51 L Pulse Oximetry 100 Oxygen Delivery Method 06/07/24 00:00 06/07/24 00:00 06/07/24 00:10 Pulse Rate 85 87 Respiratory Rate 22 21 Blood Pressure 84/54 L Pulse Oximetry 100 100 Oxygen Delivery Method 06/07/24 00:10 06/07/24 00:20 06/07/24 00:20 Pulse Rate 87 Respiratory Rate 18 Blood Pressure 95/52 L 91/53 L Pulse Oximetry 99 Oxygen Delivery Method 06/07/24 00:30 06/07/24 00:40 06/07/24 00:40 Pulse Rate 100 H Respiratory Rate 20 Blood Pressure 127/63 108/60 Pulse Oximetry 100 Oxygen Delivery Method 06/07/24 00:50 06/07/24 00:50 06/07/24 01:00 Pulse Rate 92 H 98 H Respiratory Rate 22 18 Blood Pressure 94/53 L Pulse Oximetry 100 100 Oxygen Delivery Method 06/07/24 01:10 06/07/24 01:10 06/07/24 01:20 Pulse Rate 97 H 93 H Respiratory Rate 20 16 Blood Pressure 105/67 Pulse Oximetry 98 99 Oxygen Delivery Method 06/07/24 01:20 06/07/24 01:30 06/07/24 01:30 Pulse Rate 90 Respiratory Rate 18 Blood Pressure 102/57 L 94/51 L Pulse Oximetry 98 Oxygen Delivery Method 06/07/24 01:40 06/07/24 01:40 06/07/24 01:50 Pulse Rate 90 88 Respiratory Rate 19 15 Blood Pressure 91/53 L Pulse Oximetry 98 100 Oxygen Delivery Method 06/07/24 01:50 06/07/24 02:00 06/07/24 02:00 Pulse Rate 87 Respiratory Rate 17 Blood Pressure 90/50 L 86/54 L Pulse Oximetry 98 Oxygen Delivery Method 06/07/24 02:10 06/07/24 02:10 Pulse Rate 87 Respiratory Rate 14 Blood Pressure 86/54 L Pulse Oximetry 99 Oxygen Delivery Method MDM - Male Genitourinary Differential Diagnosis Differential diagnosis: Likely urinary tract infection, prostatitis and acute retention of urine Lab Data 06/07/24 03:55 06/06/24 20:30 Labs: Lab Results 06/06/24 06/06/24 06/06/24 Range/Units 20:30 21:10 21:35 WBC 8.7 (4.5-11.0) X10^3/uL RBC 3.12 L (4.5-5.9) X10^6/uL Hgb 9.7 L (13.5-17.5) g/dL Hct 28.8 L (41-53) % MCV 92.4 (80-100) fL MCH 31.2 (26-34) PG MCHC 33.8 (30-36) % RDW 14.5 (11.6-14.8) % Plt Count 328 (150-400) X10^3/uL Neut % (Auto) 91.9 H (50-75) % Lymph % (Auto) 2.4 L (25-40) % [place] % (Auto) 5.3 (3-14) % Eos % (Auto) 0.1 L (2-4) % Baso % (Auto) 0.3 (0-2) % Neut # (Auto) 8000 H (2384-5877) /uL Lymph # (Auto) 200 L (1825-2580) /uL [place] # (Auto) 500 (0-900) /uL Eos # (Auto) 0 (0-450) /uL Baso # (Auto) 0 (0-100) /uL Sodium 123 L (137-145) mmol/L Potassium 3.7 (3.4-5.1) mmol/L Chloride 96 L (98-107) mmol/L Carbon Dioxide 19 L (22-32) mmol/L BUN 28 H (9-20) mg/dL Creatinine 1.57 H (0.66-1.25) mg/dL Estimated GFR 47 L (>60) mL/min BUN/Creatinine Ratio 17.8 (6-22) Glucose 171 H (80-110) mg/dL Lactate 2.6 H (0.7-2.1) mmol/L Calcium 9.2 (8.4-10.2) mg/dL Total Bilirubin 0.8 (0.2-1.3) mg/dL AST 52 (17-59) IU/L ALT 77 H (<50) IU/L Alkaline Phosphatase 96 (38-126) U/L Total Protein 6.7 (6.3-8.2) g/dL Albumin 3.3 L (3.5-5.0) g/dL Globulin 3.4 (1.7-4.1) g/dL Albumin/Globulin Ratio 1.0 (1.0-2.8) Urine Color Red Urine Appearance Turbid Urine pH 6.5 (4.5-8.0) Ur Specific [place] 1.010 (1.000-1.035) Urine Protein TNP Urine Glucose (UA) TNP Urine Ketones TNP Urine Occult Blood 3+ H (Negative) Urine Nitrate TNP Urine Bilirubin TNP Urine Urobilinogen TNP Ur Leukocyte Esterase TNP Urine RBC >100/hpf H (0-5/HPF) Urine WBC 30-100/hpf H (0-5/HPF) Ur Squamous Epith Cells None seen (0-5/HPF) Urine Bacteria Many (>30) H (None) Ur Culture Indicated? Specimen cultured Vol Urine Centrifuged 10ml (spun) Blood Type O Positive Antibody Screen Negative 06/06/24 06/06/24 06/07/24 Range/Units 22:10 23:50 03:55 WBC (4.5-11.0) X10^3/uL RBC (4.5-5.9) X10^6/uL Hgb 8.4 L 8.6 L (13.5-17.5) g/dL Hct 24.7 L 25.2 L (41-53) % MCV (80-100) fL MCH (26-34) PG MCHC (30-36) % RDW (11.6-14.8) % Plt Count (150-400) X10^3/uL Neut % (Auto) (50-75) % Lymph % (Auto) (25-40) % [place] % (Auto) (3-14) % Eos % (Auto) (2-4) % Baso % (Auto) (0-2) % Neut # (Auto) (1682-7179) /uL Lymph # (Auto) (7111-5325) /uL [place] # (Auto) (0-900) /uL Eos # (Auto) (0-450) /uL Baso # (Auto) (0-100) /uL Sodium (137-145) mmol/L Potassium (3.4-5.1) mmol/L Chloride (98-107) mmol/L Carbon Dioxide (22-32) mmol/L BUN (9-20) mg/dL Creatinine (0.66-1.25) mg/dL Estimated GFR (>60) mL/min BUN/Creatinine Ratio (6-22) Glucose (80-110) mg/dL Lactate 1.7 (0.7-2.1) mmol/L Calcium (8.4-10.2) mg/dL Total Bilirubin (0.2-1.3) mg/dL AST (17-59) IU/L ALT (<50) IU/L Alkaline Phosphatase (38-126) U/L Total Protein (6.3-8.2) g/dL Albumin (3.5-5.0) g/dL Globulin (1.7-4.1) g/dL Albumin/Globulin Ratio (1.0-2.8) Urine Color Urine Appearance Urine pH (4.5-8.0) Ur Specific [place] (1.000-1.035) Urine Protein Urine Glucose (UA) Urine Ketones Urine Occult Blood (Negative) Urine Nitrate Urine Bilirubin Urine Urobilinogen Ur Leukocyte Esterase Urine RBC (0-5/HPF) Urine WBC (0-5/HPF) Ur Squamous Epith Cells (0-5/HPF) Urine Bacteria (None) Ur Culture Indicated? Vol Urine Centrifuged Blood Type Antibody Screen Imaging Data CT scan - abdomen/pelvis: Radiologist's Impression: PROCEDURE: CT ABDOMEN PELVIS W CON INDICATIONS: GROSS HEMATURIA, NOT CLEARING TECHNIQUE: After the administration of intravenous contrast, axial sections acquired from the lung bases to the pubic symphysis. Coronal and sagittal reformats were performed. For radiation dose reduction, the following was used: automated exposure control, adjustment of mA and/or kV according to patient size. COMPARISON: [facility], CT, CT ANGIO CHEST PE PROTOCOL, 05/22/2024, 9:52. FINDINGS: Image quality: Diagnostic. Lower Chest: Small peripheral opacity is seen at the posterior lateral right lung base. ABDOMEN: Liver: No solid mass. Gallbladder: No radiopaque gallstones or wall thickening. Biliary ducts: No biliary dilation. Pancreas: The pancreatic duct is diffusely dilated. No obstructing mass is seen. Spleen: Size is within normal limits. Adrenal Glands: Indeterminate 1.9 cm right adrenal nodule. Kidneys and Ureters: No solid mass. No complex renal cystic lesion which requires follow up. Moderate bilateral hydronephrosis and hydroureter. No obstructing calculus is seen. Stomach and Bowel: Numerous diverticula are seen in the colon without focal diverticulitis. Normal retrocecal appendix. Small bowel loops and stomach are unremarkable. Peritoneum: No abnormal intraperitoneal fluid. No free air. Ventral Wall: No significant ventral hernia. Abdominal Nodes: No retroperitoneal or mesenteric adenopathy by size criteria. Vessels: Aorta and inferior vena cava are normal in size. PELVIS: Pelvic Organs: Fluid in [place] the lesion is seen in the right prostate lobe measuring approximately 2.0 x 1.3 cm on axial images (2/126), and prostate abscess is not excluded. Bladder: A Jackson catheter is present. Heterogeneous material in the bladder lumen likely represents blood products. There are multiple foci of air throughout the bladder and within the diffusely thickened bladder wall suspicious for emphysematous cystitis. Pelvic Nodes: No enlarged lymph nodes. Miscellaneous: No inguinal hernias are seen. Bones: No aggressive osseous abnormality. 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 IMPRESSION: 1. Diffuse bladder wall thickening and foci of gas are suspicious for possible emphysematous cystitis. Heterogeneous hyperdense bladder contents are compatible the history of hematuria. Jackson catheter is in appropriate position. 2. Low-density lesion in the right prostate lobe could indicate prostatitis or prostate abscess. 3. Moderate bilateral hydroureteronephrosis without an obstructing calculus. 4. Colonic diverticulosis. 5. Diffusely dilated pancreatic duct is seen without an obstructing mass, which is of uncertain significance. 6. Small peripheral opacity at the right lower lobe may represent focal pneumonia, atelectasis, or infarct. Approved by: Anton Sandhu M.D. on 06/06/2024 at 23:51 MDM Narrative Medical decision making narrative: Hematuria with Jackson catheter placement within the last 2 weeks. Records from [facility] show that patient had Jackson catheter placed for urinary retention. During his hospital stay he was also found to have a left apical mural thrombus and was started on Eliquis. After initiation on Eliquis patient did have very mild hematuria, however his hemoglobin remained stable throughout his stay in the emergency department [facility] his hemoglobin at time of discharge was 13.2 on 05/27/2024. Patient has claribel blood in his catheter bag. Nursing staff instructed to exchange catheter for three-way with manual irrigation and continuous bladder irrigation. Initial hemoglobin 9.7. Patient continues to have claribel blood in his Jackson catheter. Nursing staff having to perform manual irrigation to break up clots. CT scan ordered for further assessment. CT scan shows bladder wall thickening and locules of air, possible for emphysematous cystitis. Patient does have a lot of bacteria in his urine sample and empiric Rocephin ordered for coverage. Patient continues to have bright red blood in his catheter bag. Repeat H&H 8.4. Patient is on blood thinners, but I do not want to reverse his anticoagulation at this time since patient otherwise seems to be at his hemodynamic baseline and also has concurrent presense of LV thrombus. Patient did have brief decrease in blood pressure to 80/50, however this quickly improved. [facility] does seem to have baseline hypotension and optimal medical management of his congestive heart failure with beta blockers was difficult due to his BP. Patient had extremely difficult irrigation of 20 Faro[place] Jackson catheter with frequent clotting. Unable to manually irrigate despite multiple attempts. We were able to find a 24 Faro[place] Jackson catheter with successful placement of this catheter and subsequent drainage of dark bloody urine. Discussed case with Dr. Loera of [facility]. He states that it was reasonable to transfer patient based on lack of urology services at our hospital with large drop in hemoglobin. Attempted to transfer patient to [facility], however due to his extensive cardiac history his case was deferred for higher level of care. Patient continues to have continuous bladder irrigation. His urine we will run clear, but if the catheter is clamped it begins to become bloody again in his still having production of small clots. Third hemoglobin stable at 8.6. Patient accepted to [facility] for transfer. ambulance service arrived at 0700 for transfer. [place]-red material in jackson bag without signs of obstruction. Patient transferred in stable condition to [facility]. Critical Care Time Critical Care Time Critical Care Time: Yes Total Critical Care Time: 49 Attestation: Acute blood loss anemia from bleed. Requiring extensive catheter checks, hemodynamic monitoring, monitoring for possible transfusion of blood products Discharge Plan Departure Patient Disposition: [facility] Clinical Impression: Hematuria, Acute blood loss anemia, Emphysematous cystitis
[2024-06-06] MEDS: LIDOCAINE 2% (GLYDO) 6 ML GEL TOP (20:05)
[2024-06-06 20:42] LABS: Add Manual Diff / Slide Review NO; Basophils Absolute Auto 0 /uL (0-100); Basophils Percent Auto 0.3 % (0-2); Eosinophils Absolute Auto 0 /uL (0-450); Eosinophils Percent Auto 0.1 % (2-4); Hematocrit 28.8 % (41-53); Hemoglobin 9.7 g/dL (13.5-17.5); Lymphocytes Absolute Auto 200 /uL (1100-4500); Lymphocytes Percent Auto 2.4 % (25-40); Mean Corpuscular HGB Conc 33.8 % (30-36); Mean Corpuscular Hemoglobin 31.2 PG (26-34); Mean Corpuscular Volume 92.4 fL (80-100); Monocytes Absolute Auto 500 /uL (0-900); Monocytes Percent Auto 5.3 % (3-14); Neutrophils Absolute Auto 8000 /uL (1500-7000); Neutrophils Percent Auto 91.9 % (50-75); Platelet Count 328 X10^3/uL (150-400); Red Blood Cell Count 3.12 X10^6/uL (4.5-5.9); Red Cell Distribution Width 14.5 % (11.6-14.8); White Blood Cell Count 8.7 X10^3/uL (4.5-11.0)
[2024-06-06 20:55] LABS: Alanine Aminotransferase 77 IU/L (<50); Albumin 3.3 g/dL (3.5-5.0); Alkaline Phosphatase 96 U/L (38-126); Aspartate Aminotransferase 52 IU/L (17-59); BUN Creatinine Ratio 17.8 (6-22); Bilirubin Total 0.8 mg/dL (0.2-1.3); Blood Urea Nitrogen 28 mg/dL (9-20); Calcium 9.2 mg/dL (8.4-10.2); Carbon Dioxide 19 mmol/L (22-32); Chloride 96 mmol/L (98-107); Estimated Glomerular Filt Rate 47 mL/min (>60); Globulin 3.4 g/dL (1.7-4.1); Glucose 171 mg/dL (80-110); HEMOLYSIS 34 (0-50); Lactate (Lactic Acid) 2.6 mmol/L (0.7-2.1); Potassium 3.7 mmol/L (3.4-5.1); Sodium 123 mmol/L (137-145); Total Protein 6.7 g/dL (6.3-8.2)
--- NOTE | 2024-06-06 21:03 | PC.NURSE ---
Pt continues to require multiple irrigations to clear a large amount of clots in bladder. Pt tolerated well.
[2024-06-06 22:14] LABS: Reflexed Lactate in 2 Hours Y
--- NOTE | 2024-06-06 22:28 | DI.CT.S_ITS ---
PROCEDURE: CT ABDOMEN PELVIS W CON INDICATIONS: GROSS HEMATURIA, NOT CLEARING TECHNIQUE: After the administration of intravenous contrast, axial sections acquired from the lung bases to the pubic symphysis. Coronal and sagittal reformats were performed. For radiation dose reduction, the following was used: automated exposure control, adjustment of mA and/or kV according to patient size. COMPARISON: [facility], CT, CT ANGIO CHEST PE PROTOCOL, 05/22/2024, 9:52. FINDINGS: Image quality: Diagnostic. Lower Chest: Small peripheral opacity is seen at the posterior lateral right lung base. ABDOMEN: Liver: No solid mass. Gallbladder: No radiopaque gallstones or wall thickening. Biliary ducts: No biliary dilation. Pancreas: The pancreatic duct is diffusely dilated. No obstructing mass is seen. Spleen: Size is within normal limits. Adrenal Glands: Indeterminate 1.9 cm right adrenal nodule. Kidneys and Ureters: No solid mass. No complex renal cystic lesion which requires follow up. Moderate bilateral hydronephrosis and hydroureter. No obstructing calculus is seen. Stomach and Bowel: Numerous diverticula are seen in the colon without focal diverticulitis. Normal retrocecal appendix. Small bowel loops and stomach are unremarkable. Peritoneum: No abnormal intraperitoneal fluid. No free air. Ventral Wall: No significant ventral hernia. Abdominal Nodes: No retroperitoneal or mesenteric adenopathy by size criteria. Vessels: Aorta and inferior vena cava are normal in size. PELVIS: Pelvic Organs: Fluid in [place] the lesion is seen in the right prostate lobe measuring approximately 2.0 x 1.3 cm on axial images (2/126), and prostate abscess is not excluded. Bladder: A Zavala catheter is present. Heterogeneous material in the bladder lumen likely represents blood products. There are multiple foci of air throughout the bladder and within the diffusely thickened bladder wall suspicious for emphysematous cystitis. Pelvic Nodes: No enlarged lymph nodes. Miscellaneous: No inguinal hernias are seen. Bones: No aggressive osseous abnormality. 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 IMPRESSION: 1. Diffuse bladder wall thickening and foci of gas are suspicious for possible emphysematous cystitis. Heterogeneous hyperdense bladder contents are compatible the history of hematuria. Zavala catheter is in appropriate position. 2. Low-density lesion in the right prostate lobe could indicate prostatitis or prostate abscess. 3. Moderate bilateral hydroureteronephrosis without an obstructing calculus. 4. Colonic diverticulosis. 5. Diffusely dilated pancreatic duct is seen without an obstructing mass, which is of uncertain significance. 6. Small peripheral opacity at the right lower lobe may represent focal pneumonia, atelectasis, or infarct. Approved by: Anton Sandhu M.D. on 06/06/2024 at 23:51
[2024-06-06] MEDS: MORPHINE 4 MG/ML INJ IV (22:31)
--- NOTE | 2024-06-06 22:37 | PC.NURSE ---
walked into room to draw Lactate, Pt complaining of bladder pain, noticed catheter not flowing. Flushed with 60cc, and able to remove 60 cc with large clot, reconnected catheter and flowing at this time.
[2024-06-06 22:41] LABS: Lactate 2HR (Lactic Acid Rflx) 1.7 mmol/L (0.7-2.1)
[2024-06-06 22:51] LABS: Appearance Urine UA TURBID; Color Urine UA RED; Occult Blood Urine UA 3+ (Negative); pH Urine UA 6.5 (4.5-8.0)
[2024-06-06 22:54] LABS: Urine Volume 10mL (spun)
[2024-06-06 22:55] LABS: Bacteria Urine Many (>30); Culture Indicated Urine Specimen Cultured; RBC Urine >100/HPF (0-5/HPF); Squamous Epithelial Cell Urine None Seen (0-5/HPF); WBC Urine 30-100/HPF (0-5/HPF)
[2024-06-06] MEDS: SODIUM CHLORIDE 0.9% 1,000 ML 1000 ML IV (23:21)
[2024-06-06] MEDS: cefTRIAXone 1,000 MG in SODIUM CHLORIDE 0.9% 100 ML 200 MG IV (23:49)
[2024-06-06 23:59] LABS: Hematocrit 24.7 % (41-53); Hemoglobin 8.4 g/dL (13.5-17.5)
[2024-06-07] VITALS (40 sets, daily range): BP systolic 82–127; BP diastolic 50–67; PULSE 85–100; RESP 11–29; TEMP 36.7; O2SAT 96–100
--- NOTE | 2024-06-07 01:00 | PC.NURSE ---
Pt continues to c/o pain to genitals. Attempted to flush three way jackson catheter. Catheter plugged. MD in room Attempted to free clot. Unable to free restriction. 20Fr triple lumen catheter removed. End was completely blocked by clots. Dr Griffith placed 24 Fr triple lumen catheter. Pt tolerated poorly. Irrigated catheter and removed a multitude of large and small clots. Irrigation fluid flowing freely.
[2024-06-07] MEDS: fentaNYL 100 MCG/2 ML INJ IV (01:08)
--- NOTE | 2024-06-07 03:41 | PC.NURSE ---
Pt lying back in gurney. Eyes closed appears in NAD. Assume asleep
[2024-06-07 04:02] LABS: Hematocrit 25.2 % (41-53); Hemoglobin 8.6 g/dL (13.5-17.5)
== END 2024-06-07 07:34 | disposition short-term general hospital (02) ==
PROVIDERS: Emergency Provider Emergency Medicine
DX: N30.80 Other cystitis without hematuria (principal); D62 Acute posthemorrhagic anemia; R31.9 Hematuria, unspecified; Z79.01 Long term (current) use of anticoagulants; R10.30 Lower abdominal pain, unspecified
CPT/HCPCS: 36415; 74177; 80053; 81001; 83605; 85014; 85018; 85025; 86850; 86900; 86901; 87040; 87077; 87086; 87186; 96365; 96375; 99284; J0696; J2270; J3010; Q9967

== ENCOUNTER 2024-08-09 17:52 | Emergency (ER) | payer MEDICARE, OTHER, SELFPAY ==
[2024-08-09] VITALS (47 sets, daily range): BP systolic 89–102; BP diastolic 52–63; PULSE 87–100; RESP 15–31; TEMP 36.5–37; O2SAT 99–100; BMI 23.5
--- NOTE | 2024-08-09 18:02 | DI.RAD.S_ITS ---
PROCEDURE: XR CHEST 1V INDICATIONS: chest pain TECHNIQUE: One view of the chest was acquired. COMPARISON: [facility], CR, XR CHEST 1V, 05/22/2024, 7:46. FINDINGS: Surgical changes and devices: None. Lungs and pleura: Mild bibasilar opacities and possible small effusions. Prominent appearance of the hilar vasculature again seen. Low lung volumes. Mediastinum: Heart size is at the upper limit of normal, unchanged Bones and chest wall: Degenerative changes IMPRESSION: Low lung volumes on limited single view radiograph. Probable small effusions and mild lower lung opacities. Prominent hilar structures likely prominent vasculature. Consider future imaging surveillance to assess for resolution. Dictated by: Carlos Perez M.D. on 08/09/2024 at 19:55 Approved by: Carlos Perez M.D. on 08/09/2024 at 19:56
--- NOTE | 2024-08-09 18:04 | EKG_ITS ---
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
[2024-08-09 18:17] LABS: Add Manual Diff / Slide Review NO; Basophils Absolute Auto 100 /uL (0-100); Basophils Percent Auto 0.8 % (0-2); Eosinophils Absolute Auto 0 /uL (0-450); Eosinophils Percent Auto 0.1 % (2-4); Lymphocytes Absolute Auto 700 /uL (1100-4500); Lymphocytes Percent Auto 8.5 % (25-40); Mean Corpuscular HGB Conc 31.8 % (30-36); Mean Corpuscular Hemoglobin 30.7 PG (26-34); Mean Corpuscular Volume 96.5 fL (80-100); Monocytes Absolute Auto 500 /uL (0-900); Monocytes Percent Auto 6.2 % (3-14); Neutrophils Absolute Auto 7400 /uL (1500-7000); Neutrophils Percent Auto 84.4 % (50-75); Platelet Count 340 X10^3/uL (150-400); Red Blood Cell Count 2.04 X10^6/uL (4.5-5.9); Red Cell Distribution Width 24.9 % (11.6-14.8); White Blood Cell Count 8.7 X10^3/uL (4.5-11.0)
--- NOTE | 2024-08-09 18:22 | ED_ITS ---
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 Patient states he has been increasingly weak has not been able to walk the last several days states he fell in his way to the bathroom about 4 days ago did hit his head on his right shoulder. States no loss of consciousness. No headaches no neck pain no back pain. He denies any chest pain he states chronically short of breath but has been slowly worsening. Denies any orthopnea. Denies any new swelling in extremities. States he has not had any issues with urination. States has not had a bowel movement in days. States he was passing gas. Patient appears jaundiced he is unsure if this is a new change. He takes Eliquis, aspirin, atorvastatin, finasteride, Lasix, metoprolol, midodrine and tamsulosin for daily medications. Denies any drug allergies uses tobacco, does drink alcohol no recreational drugs. [facility] States he is supposed to follow up with Cardiology later this month. He was noted to be hypotensive with a pressure in the 90s he states this is typical. 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 Patient's is bedside. Related Data Home Medications Medication Instructions Recorded Confirmed apixaban 5 mg tablet 5 mg PO BID 06/08/24 08/10/24 aspirin 81 mg tablet,delayed 81 mg PO DAILY 06/08/24 08/10/24 release (Adult Low Dose Aspirin) atorvastatin 20 mg tablet 20 mg PO DAILY 06/08/24 08/10/24 empagliflozin 10 mg tablet 10 mg PO DAILY 06/08/24 finasteride 5 mg tablet 5 mg PO DAILY 06/08/24 08/10/24 furosemide 40 mg tablet 40 mg PO DAILY 06/08/24 08/10/24 metoprolol succinate 25 mg 12.5 mg PO DAILY 06/08/24 08/10/24 tablet,extended release 24 hr tamsulosin 0.4 mg capsule 0.4 mg PO BEDTIME 06/08/24 08/10/24 midodrine 5 mg tablet 10 mg PO Q8HR PRN Hypotension 08/10/24 08/10/24 Allergies Allergy/AdvReac Type Severity Reaction Status Date / Time No Known Drug Allergies Allergy Verified 08/09/24 18:01 Review of Systems <Elle Hui DO - Last Filed: 08/21/24 08:04> Review of Systems ROS Unobtainable: All systems reviewed & are unremarkable except as noted in HPI and below Patient History <Elle Hui DO - Last Filed: 08/21/24 08:04> Social History Smoking Status: Current every day smoker Smoking Status: Current every day smoker alcohol intake frequency: 3 or more drinks per day Exam <Elle Hui DO - Last Filed: 08/21/24 08:04> Narrative Exam Narrative: GEN: Patient appears in moderate distress. Patient is cachectic, jaundiced HEAD: No evidence of trauma, no raccoon/Grant sign. NECK: Nontender, painless range of motion, trachea midline No midline tenderness, distracting injury, altered mental status, neuro deficit, recent EtOH. EYES: PERRLA, EOMI ENT: External inspection normal, trachea is midline, Nares are clear, no septal hematoma, no dental or oral injury, airway is normal and with normal occlusion, No bony tenderness RESP: Chest is nontender and has symmetric movement, no ecchymosis, breath sounds are normal no crackles, wheezes or rales CVS: Heart sounds are normal, no murmur noted, No JVD. ABG/GI: Nontender, soft, normal bowel sounds, no distention, no organomegaly, pelvic rock is negative NEURO: Oriented AOx3, neuro is grossly intact, sensation and motor is normal all 4 extremities moving, cranial nerves II through XII are intact, GCS is 15 PSYCH: Normal mood and affect SKIN: Intact, warm and dry, no crepitus and without decubitus BACK: No CVA tenderness, no vertebral tenderness, no step-off's, no crepitus EXT: Atraumatic, hips are nontender, no pedal edema, normal color and temperature, normal range of motion of extremities with normal tendon exam, 2+ pulses in all four extremities Initial Vital Signs Initial Vital Signs: Vital Signs Temperature 97.7 F 08/09/24 17:52 Pulse Rate 99 H 08/09/24 17:52 Respiratory Rate 25 H 08/09/24 17:52 Blood Pressure 97/54 L 08/09/24 17:52 Pulse Oximetry 100 08/09/24 17:52 Oxygen Delivery Method Room Air 08/09/24 17:52 <Ninfa Billingsley MD - Last Filed: 08/10/24 18:10> Initial Vital Signs Initial Vital Signs: Vital Signs Temperature 97.7 F 08/09/24 17:52 Pulse Rate 99 H 08/09/24 17:52 Respiratory Rate 25 H 08/09/24 17:52 Blood Pressure 97/54 L 08/09/24 17:52 Pulse Oximetry 100 08/09/24 17:52 Oxygen Delivery Method Room Air 08/09/24 17:52 Course <Elle Hui DO - Last Filed: 08/21/24 08:04> Orders Ordered: Discontinued Medications Sodium Chloride (Normal Saline 0.9%) 1,000 mls @ 1,000 mls/hr IV BOLUS ONE Stop: 08/09/24 19:23 Last Infusion: 08/09/24 20:12 Dose: Infused Documented By: Admin: 08/09/24 19:10 Dose: 1,000 mls/hr Documented By: NANI Lidocaine HCl (Lidocaine 2% (Glydo) 6 Ml Gel) 6 ml TOP NOW ONE Stop: 08/09/24 18:21 Last Admin: 08/09/24 19:10 Dose: 6 ml Documented By: NANI Potassium Chloride (Potassium Chloride 20 Meq Tab) 40 meq PO NOW ONE Stop: 08/10/24 06:48 Last Admin: 08/10/24 08:01 Dose: 40 meq Documented By: CTS Vital Signs Vital signs: Vital Signs - 8 hr 08/10/24 10:30 08/10/24 11:00 08/10/24 11:30 Temperature 98.4 F 98.6 F 98.4 F Pulse Rate 94 H 97 H 98 H Respiratory Rate 24 22 21 Blood Pressure Pulse Oximetry 100 100 100 Oxygen Delivery Method Room Air 08/10/24 12:00 08/10/24 12:00 08/10/24 12:30 Temperature 98.4 F 98.4 F Pulse Rate 101 H 100 H Respiratory Rate 28 H 25 H Blood Pressure 94/70 Pulse Oximetry 100 100 Oxygen Delivery Method 08/10/24 13:00 08/10/24 13:30 08/10/24 14:00 Temperature 98.2 F 98.1 F 98.2 F Pulse Rate 103 H 102 H 103 H Respiratory Rate 26 H 25 H 25 H Blood Pressure Pulse Oximetry 100 100 100 Oxygen Delivery Method 08/10/24 14:00 08/10/24 14:30 08/10/24 15:00 Temperature 98.2 F 98.2 F Pulse Rate 102 H 104 H Respiratory Rate 25 H 29 H Blood Pressure 97/61 Pulse Oximetry 100 99 Oxygen Delivery Method Room Air 08/10/24 15:30 08/10/24 16:00 08/10/24 16:00 Temperature 98.2 F 98.4 F Pulse Rate 104 H 106 H Respiratory Rate 28 H 31 H Blood Pressure 107/61 Pulse Oximetry 100 100 Oxygen Delivery Method 08/10/24 16:30 08/10/24 17:00 08/10/24 17:30 Temperature 98.4 F 98.4 F 98.6 F Pulse Rate 104 H 104 H 103 H Respiratory Rate 29 H 25 H 28 H Blood Pressure Pulse Oximetry 100 100 100 Oxygen Delivery Method 08/10/24 18:00 08/10/24 18:01 08/10/24 18:01 Temperature 98.8 F 98.8 F Pulse Rate 103 H 104 H Respiratory Rate 24 30 H Blood Pressure 103/57 L Pulse Oximetry 100 100 Oxygen Delivery Method <Ninfa Billingsley MD - Last Filed: 08/10/24 18:10> Orders Ordered: Discontinued Medications Sodium Chloride (Normal Saline 0.9%) 1,000 mls @ 1,000 mls/hr IV BOLUS ONE Stop: 08/09/24 19:23 Last Infusion: 08/09/24 20:12 Dose: Infused Documented By: Admin: 08/09/24 19:10 Dose: 1,000 mls/hr Documented By: NANI Lidocaine HCl (Lidocaine 2% (Glydo) 6 Ml Gel) 6 ml TOP NOW ONE Stop: 08/09/24 18:21 Last Admin: 08/09/24 19:10 Dose: 6 ml Documented By: NANI Potassium Chloride (Potassium Chloride 20 Meq Tab) 40 meq PO NOW ONE Stop: 08/10/24 06:48 Last Admin: 08/10/24 08:01 Dose: 40 meq Documented By: JULES Vital Signs Vital signs: Vital Signs - 8 hr 08/10/24 10:30 08/10/24 11:00 08/10/24 11:30 Temperature 98.4 F 98.6 F 98.4 F Pulse Rate 94 H 97 H 98 H Respiratory Rate 24 22 21 Blood Pressure Pulse Oximetry 100 100 100 Oxygen Delivery Method Room Air 08/10/24 12:00 08/10/24 12:00 08/10/24 12:30 Temperature 98.4 F 98.4 F Pulse Rate 101 H 100 H Respiratory Rate 28 H 25 H Blood Pressure 94/70 Pulse Oximetry 100 100 Oxygen Delivery Method 08/10/24 13:00 08/10/24 13:30 08/10/24 14:00 Temperature 98.2 F 98.1 F 98.2 F Pulse Rate 103 H 102 H 103 H Respiratory Rate 26 H 25 H 25 H Blood Pressure Pulse Oximetry 100 100 100 Oxygen Delivery Method 08/10/24 14:00 08/10/24 14:30 08/10/24 15:00 Temperature 98.2 F 98.2 F Pulse Rate 102 H 104 H Respiratory Rate 25 H 29 H Blood Pressure 97/61 Pulse Oximetry 100 99 Oxygen Delivery Method Room Air 08/10/24 15:30 08/10/24 16:00 08/10/24 16:00 Temperature 98.2 F 98.4 F Pulse Rate 104 H 106 H Respiratory Rate 28 H 31 H Blood Pressure 107/61 Pulse Oximetry 100 100 Oxygen Delivery Method 08/10/24 16:30 08/10/24 17:00 08/10/24 17:30 Temperature 98.4 F 98.4 F 98.6 F Pulse Rate 104 H 104 H 103 H Respiratory Rate 29 H 25 H 28 H Blood Pressure Pulse Oximetry 100 100 100 Oxygen Delivery Method 08/10/24 18:00 08/10/24 18:01 08/10/24 18:01 Temperature 98.8 F 98.8 F Pulse Rate 103 H 104 H Respiratory Rate 24 30 H Blood Pressure 103/57 L Pulse Oximetry 100 100 Oxygen Delivery Method MDM - Fall <Elle Hui, DO - Last Filed: 08/21/24 08:04> Lab Data 08/10/24 15:15 08/10/24 06:04 Labs: Lab Results 08/09/24 08/09/24 08/09/24 Range/Units 18:00 18:13 20:09 WBC 8.7 (4.5-11.0) X10^3/uL RBC 2.04 L (4.5-5.9) X10^6/uL Hgb 6.3 L* (13.5-17.5) g/dL Hct 19.7 L* (41-53) % MCV 96.5 (80-100) fL MCH 30.7 (26-34) PG MCHC 31.8 (30-36) % RDW 24.9 H (11.6-14.8) % Plt Count 340 (150-400) X10^3/uL Neut % (Auto) 84.4 H (50-75) % Lymph % (Auto) 8.5 L (25-40) % Becker % (Auto) 6.2 (3-14) % Eos % (Auto) 0.1 L (2-4) % Baso % (Auto) 0.8 (0-2) % Neut # (Auto) 7400 H (9602-0776) /uL Lymph # (Auto) 700 L (6306-4013) /uL Becker # (Auto) 500 (0-900) /uL Eos # (Auto) 0 (0-450) /uL Baso # (Auto) 100 (0-100) /uL RBC Morphology See below Polychromasia 1+ H Hypochromasia 1+ H Anisocytosis 3+ H Microcytosis 1+ H Macrocytosis 1+ H Target Cells 1+ H Tear Drop Cells 1+ H Ovalocytes 1+ H Stomatocytes 1+ H Hampton Cells 1+ H Acanthocytes (Spur) 3+ Schistocytes 2+ H PT 33.9 H (9.4-12.5) SECONDS INR 3.1 H (0.9-1.3) APTT 34 (25.1-36.5) SECONDS Sodium 130 L (137-145) mmol/L Potassium 3.9 (3.4-5.1) mmol/L Chloride 101 (98-107) mmol/L Carbon Dioxide 19 L (22-32) mmol/L BUN 55 H (9-20) mg/dL Creatinine 1.22 (0.66-1.25) mg/dL Estimated GFR > 60 (>60) mL/min BUN/Creatinine Ratio 45.1 H (6-22) Glucose 122 H (80-110) mg/dL Lactate 3.6 H (0.7-2.1) mmol/L Calcium 8.3 L (8.4-10.2) mg/dL Magnesium 2.4 H (1.6-2.3) mg/dL Total Bilirubin 1.6 H (0.2-1.3) mg/dL AST 364 H (17-59) IU/L ALT 451 H (<50) IU/L Alkaline Phosphatase 330 H (38-126) U/L Total Creatine Kinase 250 H (55-170) U/L Troponin I 0.048 H 0.038 H (0.01-0.034) ng/mL NT-Pro-B Natriuret Pep > 68519 H (<125) pg/mL Total Protein 6.2 L (6.3-8.2) g/dL Albumin 3.2 L (3.5-5.0) g/dL Globulin 3.0 (1.7-4.1) g/dL Albumin/Globulin Ratio 1.1 (1.0-2.8) Lipase 254 (23-300) U/L Procalcitonin 0.349 (<0.5) ng/mL Urine Color Urine Appearance Urine pH (4.5-8.0) Ur Specific [place] (1.000-1.035) Urine Protein (Negative) Urine Glucose (UA) (Negative) g/dL Urine Ketones (NEGATIVE) Urine Occult Blood (Negative) Urine Nitrate (Negative) Urine Bilirubin (NEGATIVE) Urine Urobilinogen (0.2) E.U./dL Ur Leukocyte Esterase (NEGATIVE) Urine RBC (0-5/HPF) Urine WBC (0-5/HPF) Ur Squamous Epith Cells (0-5/HPF) Urine Bacteria (None) Ur Culture Indicated? Vol Urine Centrifuged Blood Type O Positive Antibody Screen Negative Crossmatch See Detail 08/09/24 08/10/24 08/10/24 Range/Units 22:45 06:04 11:20 WBC 7.2 (4.5-11.0) X10^3/uL RBC 2.35 L (4.5-5.9) X10^6/uL Hgb 7.0 L (13.5-17.5) g/dL Hct 21.8 L (41-53) % MCV 92.5 D (80-100) fL MCH 29.9 (26-34) PG MCHC 32.3 (30-36) % RDW 24.8 H (11.6-14.8) % Plt Count 265 (150-400) X10^3/uL Neut % (Auto) 77.1 H (50-75) % Lymph % (Auto) 13.8 L (25-40) % Becker % (Auto) 7.4 (3-14) % Eos % (Auto) 0.6 L (2-4) % Baso % (Auto) 1.1 (0-2) % Neut # (Auto) 5600 (5746-0609) /uL Lymph # (Auto) 1000 L (5755-2834) /uL Becker # (Auto) 500 (0-900) /uL Eos # (Auto) 0 (0-450) /uL Baso # (Auto) 100 (0-100) /uL RBC Morphology See below Polychromasia Hypochromasia 1+ H Anisocytosis 3+ H Microcytosis 1+ H Macrocytosis 1+ H Target Cells 1+ H Tear Drop Cells Ovalocytes 1+ H Stomatocytes 1+ H Diamond Cells 1+ H Acanthocytes (Spur) Schistocytes 1+ H PT (9.4-12.5) SECONDS INR (0.9-1.3) APTT (25.1-36.5) SECONDS Sodium 129 L (137-145) mmol/L Potassium 3.3 L (3.4-5.1) mmol/L Chloride 103 (98-107) mmol/L Carbon Dioxide 20 L (22-32) mmol/L BUN 52 H (9-20) mg/dL Creatinine 0.99 (0.66-1.25) mg/dL Estimated GFR > 60 (>60) mL/min BUN/Creatinine Ratio 52.5 H (6-22) Glucose 105 (80-110) mg/dL Lactate 1.7 (0.7-2.1) mmol/L Calcium 8.2 L (8.4-10.2) mg/dL Magnesium (1.6-2.3) mg/dL Total Bilirubin 1.7 H (0.2-1.3) mg/dL AST 259 H (17-59) IU/L ALT 364 H (<50) IU/L Alkaline Phosphatase 286 H (38-126) U/L Total Creatine Kinase (55-170) U/L Troponin I (0.01-0.034) ng/mL NT-Pro-B Natriuret Pep (<125) pg/mL Total Protein 5.5 L (6.3-8.2) g/dL Albumin 2.7 L (3.5-5.0) g/dL Globulin 2.8 (1.7-4.1) g/dL Albumin/Globulin Ratio 1.0 (1.0-2.8) Lipase (23-300) U/L Procalcitonin (<0.5) ng/mL Urine Color Yellow Urine Appearance Cloudy Urine pH 6.0 (4.5-8.0) Ur Specific [place] 1.015 (1.000-1.035) Urine Protein 2+ H (Negative) Urine Glucose (UA) Negative (Negative) g/dL Urine Ketones Negative (NEGATIVE) Urine Occult Blood 3+ H (Negative) Urine Nitrate Negative (Negative) Urine Bilirubin Negative (NEGATIVE) Urine Urobilinogen 1.0 (0.2) E.U./dL Ur Leukocyte Esterase 2+ H (NEGATIVE) Urine RBC 10-30/hpf H (0-5/HPF) Urine WBC 30-100/hpf H (0-5/HPF) Ur Squamous Epith Cells 1-5 /hpf (0-5/HPF) Urine Bacteria Many (>30) H (None) Ur Culture Indicated? Specimen cultured Vol Urine Centrifuged 10ml (spun) Blood Type Antibody Screen Crossmatch 08/10/24 Range/Units 15:15 WBC (4.5-11.0) X10^3/uL RBC (4.5-5.9) X10^6/uL Hgb 8.0 L (13.5-17.5) g/dL Hct 24.9 L (41-53) % MCV (80-100) fL MCH (26-34) PG MCHC (30-36) % RDW (11.6-14.8) % Plt Count (150-400) X10^3/uL Neut % (Auto) (50-75) % Lymph % (Auto) (25-40) % Becker % (Auto) (3-14) % Eos % (Auto) (2-4) % Baso % (Auto) (0-2) % Neut # (Auto) (6422-1961) /uL Lymph # (Auto) (4191-2727) /uL Becker # (Auto) (0-900) /uL Eos # (Auto) (0-450) /uL Baso # (Auto) (0-100) /uL RBC Morphology Polychromasia Hypochromasia Anisocytosis Microcytosis Macrocytosis Target Cells Tear Drop Cells Ovalocytes Stomatocytes Hampton Cells Acanthocytes (Spur) Schistocytes PT (9.4-12.5) SECONDS INR (0.9-1.3) APTT (25.1-36.5) SECONDS Sodium (137-145) mmol/L Potassium (3.4-5.1) mmol/L Chloride (98-107) mmol/L Carbon Dioxide (22-32) mmol/L BUN (9-20) mg/dL Creatinine (0.66-1.25) mg/dL Estimated GFR (>60) mL/min BUN/Creatinine Ratio (6-22) Glucose (80-110) mg/dL Lactate (0.7-2.1) mmol/L Calcium (8.4-10.2) mg/dL Magnesium (1.6-2.3) mg/dL Total Bilirubin (0.2-1.3) mg/dL AST (17-59) IU/L ALT (<50) IU/L Alkaline Phosphatase (38-126) U/L Total Creatine Kinase (55-170) U/L Troponin I (0.01-0.034) ng/mL NT-Pro-B Natriuret Pep (<125) pg/mL Total Protein (6.3-8.2) g/dL Albumin (3.5-5.0) g/dL Globulin (1.7-4.1) g/dL Albumin/Globulin Ratio (1.0-2.8) Lipase (23-300) U/L Procalcitonin (<0.5) ng/mL Urine Color Urine Appearance Urine pH (4.5-8.0) Ur Specific [place] (1.000-1.035) Urine Protein (Negative) Urine Glucose (UA) (Negative) g/dL Urine Ketones (NEGATIVE) Urine Occult Blood (Negative) Urine Nitrate (Negative) Urine Bilirubin (NEGATIVE) Urine Urobilinogen (0.2) E.U./dL Ur Leukocyte Esterase (NEGATIVE) Urine RBC (0-5/HPF) Urine WBC (0-5/HPF) Ur Squamous Epith Cells (0-5/HPF) Urine Bacteria (None) Ur Culture Indicated? Vol Urine Centrifuged Blood Type Antibody Screen Crossmatch ECG Data Attestation: I personally reviewed and interpreted this ECG as follows: Prior ECG tracings: available for review Interpretation: Normal sinus rhythm, left atrial enlargement right bundle-branch block left anterior fascicular block has prior from 05/22/2024 questionable new depression in V4 V5 on most recent EKG but present AV present on prior EKGs. No other acute ST changes appreciated. Patient's rate is 97, GA 154 QRS 8158, QTC of 523. Sinus rhythm premature complexes rate of 93 GA 168 QRS of 162 QTC of 542. Left anterior fascicular block right bundle-branch block. Appears similar ST segments look like depression V4 5 than prior from earlier today. [facility] Narrative Medical decision making narrative: 69-year-old ill-appearing cachectic jaundiced male who presents with a blood pressure 90s although patient states this is typical heart rates in the 90s as well O2 sats 100%. Patient has known EF last reported a 16% discussed with patient would benefit from blood as his hemoglobin today is 6.3 was 8.6 in May patient is agreeable to this we did discuss he was high-risk for fluid overload and potentially requiring intubation. Labs show white count 8.7 hemoglobin of 6.3 was 8.6 in May platelets are 340. INR is 3.1. Sodium is 130 potassium 3 point chloride 101 CO2 is 19 BUN 50 0.22 glucose is 122 lactate 3.6 calcium is 8 3 Mag 2.5 bilirubin is 1.6 with a AST through 64 ALT of 451 of 330 total CK is 250 with a troponin of 0.048 [place] [address]. Procalcitonin is 0.349. Repeat troponin is 0.038 EKG shows sinus rhythm has a little bit depression V4 5 not appreciated on repeat EKG questionable intermittently on EKGs from a variety of prior EKGs. Head CT shows no acute change CT cervical spine shows no fracture or traumatic subluxation [id number] degenerative changes. Partially seen pleural effusions enlarged heterogeneous thyroid. Chest x-ray shows probable small effusions and mild lower lung opacities prominent hilar structures likely prominent vasculature consider future image surveillance to assess for resolution. Right upper quadrant ultrasound stoddard secondary to elevated liver enzymes patient has non dilated biliary system, no sonographic Simpson's sign or gallstones trace pericholecystic fluid perihepatic fluid in the setting of low FF heterogeneous increased hepatic echotexture nonspecific possibly hepatocellular disease. Discussed with patient he was agreeable to transfusion of 1 unit we will monitor closely. He has an office visit that shows his pressure was in the 80s and he states 80s to 90s is typical. LFTs are elevated from prior visits suspect there maybe a component of heart failure causing some hepatic reflux but right upper quadrant ultrasound was obtained. Patient did have transferred [facility] in his last day in May he was told that he needs to have his valve replaced he was supposed to follow up with Cardiology at [facility] in the next several weeks. He has not been able to ambulate at home secondary to increasing weakness and shortness of breath likely a combination of his anemia as well as heart failure/aortic stenosis. 2225: Spoke with cardiology, Dr. Denny recommends transfer to a larger facility suspect his changes are all secondary to his aortic stenosis. Discussed with patient he does not wish to return to [facility]. His preferences actually to return but he has not been able to ambulate he does have an echo that shows moderate to severe aortic stenosis with an EF of 15-20% in April of 2026. Discussed with patient and he is unsure about treatment discussed likely needs to see cardiology and have potential valve replacement versus discussion of end of life of goals. Patient is open to transfer [facility] and to seek treatment at other facilities. Called out to multiple facilities Spoke with Dr. Ledesma cardiology at [facility], agrees patient feels appropriate for transfer we will let coordinator no it would be consult with admission to medicine. Hospitalist at [facility] @ [phone] Dr[address] Khan accepts for transfer. Awaiting bed assignment. <Ninfa Billingsley MD - Last Filed: 08/10/24 18:10> Lab Data Labs: Lab Results 08/09/24 08/09/24 08/09/24 Range/Units 18:00 18:13 20:09 WBC 8.7 (4.5-11.0) X10^3/uL RBC 2.04 L (4.5-5.9) X10^6/uL Hgb 6.3 L* (13.5-17.5) g/dL Hct 19.7 L* (41-53) % MCV 96.5 (80-100) fL MCH 30.7 (26-34) PG MCHC 31.8 (30-36) % RDW 24.9 H (11.6-14.8) % Plt Count 340 (150-400) X10^3/uL Neut % (Auto) 84.4 H (50-75) % Lymph % (Auto) 8.5 L (25-40) % Becker % (Auto) 6.2 (3-14) % Eos % (Auto) 0.1 L (2-4) % Baso % (Auto) 0.8 (0-2) % Neut # (Auto) 7400 H (7983-4245) /uL Lymph # (Auto) 700 L (6602-7229) /uL Becker # (Auto) 500 (0-900) /uL Eos # (Auto) 0 (0-450) /uL Baso # (Auto) 100 (0-100) /uL RBC Morphology See below Polychromasia 1+ H Hypochromasia 1+ H Anisocytosis 3+ H Microcytosis 1+ H Macrocytosis 1+ H Target Cells 1+ H Tear Drop Cells 1+ H Ovalocytes 1+ H Stomatocytes 1+ H Hampton Cells 1+ H Acanthocytes (Spur) 3+ Schistocytes 2+ H PT 33.9 H (9.4-12.5) SECONDS INR 3.1 H (0.9-1.3) APTT 34 (25.1-36.5) SECONDS Sodium 130 L (137-145) mmol/L Potassium 3.9 (3.4-5.1) mmol/L Chloride 101 (98-107) mmol/L Carbon Dioxide 19 L (22-32) mmol/L BUN 55 H (9-20) mg/dL Creatinine 1.22 (0.66-1.25) mg/dL Estimated GFR > 60 (>60) mL/min BUN/Creatinine Ratio 45.1 H (6-22) Glucose 122 H (80-110) mg/dL Lactate 3.6 H (0.7-2.1) mmol/L Calcium 8.3 L (8.4-10.2) mg/dL Magnesium 2.4 H (1.6-2.3) mg/dL Total Bilirubin 1.6 H (0.2-1.3) mg/dL AST 364 H (17-59) IU/L ALT 451 H (<50) IU/L Alkaline Phosphatase 330 H (38-126) U/L Total Creatine Kinase 250 H (55-170) U/L Troponin I 0.048 H 0.038 H (0.01-0.034) ng/mL NT-Pro-B Natriuret Pep > 55837 H (<125) pg/mL Total Protein 6.2 L (6.3-8.2) g/dL Albumin 3.2 L (3.5-5.0) g/dL Globulin 3.0 (1.7-4.1) g/dL Albumin/Globulin Ratio 1.1 (1.0-2.8) Lipase 254 (23-300) U/L Procalcitonin 0.349 (<0.5) ng/mL Urine Color Urine Appearance Urine pH (4.5-8.0) Ur Specific [place] (1.000-1.035) Urine Protein (Negative) Urine Glucose (UA) (Negative) g/dL Urine Ketones (NEGATIVE) Urine Occult Blood (Negative) Urine Nitrate (Negative) Urine Bilirubin (NEGATIVE) Urine Urobilinogen (0.2) E.U./dL Ur Leukocyte Esterase (NEGATIVE) Urine RBC (0-5/HPF) Urine WBC (0-5/HPF) Ur Squamous Epith Cells (0-5/HPF) Urine Bacteria (None) Ur Culture Indicated? Vol Urine Centrifuged Blood Type O Positive Antibody Screen Negative Crossmatch See Detail 08/09/24 08/10/24 08/10/24 Range/Units 22:45 06:04 11:20 WBC 7.2 (4.5-11.0) X10^3/uL RBC 2.35 L (4.5-5.9) X10^6/uL Hgb 7.0 L (13.5-17.5) g/dL Hct 21.8 L (41-53) % MCV 92.5 D (80-100) fL MCH 29.9 (26-34) PG MCHC 32.3 (30-36) % RDW 24.8 H (11.6-14.8) % Plt Count 265 (150-400) X10^3/uL Neut % (Auto) 77.1 H (50-75) % Lymph % (Auto) 13.8 L (25-40) % Becker % (Auto) 7.4 (3-14) % Eos % (Auto) 0.6 L (2-4) % Baso % (Auto) 1.1 (0-2) % Neut # (Auto) 5600 (6138-1936) /uL Lymph # (Auto) 1000 L (1305-7122) /uL Becker # (Auto) 500 (0-900) /uL Eos # (Auto) 0 (0-450) /uL Baso # (Auto) 100 (0-100) /uL RBC Morphology See below Polychromasia Hypochromasia 1+ H Anisocytosis 3+ H Microcytosis 1+ H Macrocytosis 1+ H Target Cells 1+ H Tear Drop Cells Ovalocytes 1+ H Stomatocytes 1+ H Diamond Cells 1+ H Acanthocytes (Spur) Schistocytes 1+ H PT (9.4-12.5) SECONDS INR (0.9-1.3) APTT (25.1-36.5) SECONDS Sodium 129 L (137-145) mmol/L Potassium 3.3 L (3.4-5.1) mmol/L Chloride 103 (98-107) mmol/L Carbon Dioxide 20 L (22-32) mmol/L BUN 52 H (9-20) mg/dL Creatinine 0.99 (0.66-1.25) mg/dL Estimated GFR > 60 (>60) mL/min BUN/Creatinine Ratio 52.5 H (6-22) Glucose 105 (80-110) mg/dL Lactate 1.7 (0.7-2.1) mmol/L Calcium 8.2 L (8.4-10.2) mg/dL Magnesium (1.6-2.3) mg/dL Total Bilirubin 1.7 H (0.2-1.3) mg/dL AST 259 H (17-59) IU/L ALT 364 H (<50) IU/L Alkaline Phosphatase 286 H (38-126) U/L Total Creatine Kinase (55-170) U/L Troponin I (0.01-0.034) ng/mL NT-Pro-B Natriuret Pep (<125) pg/mL Total Protein 5.5 L (6.3-8.2) g/dL Albumin 2.7 L (3.5-5.0) g/dL Globulin 2.8 (1.7-4.1) g/dL Albumin/Globulin Ratio 1.0 (1.0-2.8) Lipase (23-300) U/L Procalcitonin (<0.5) ng/mL Urine Color Yellow Urine Appearance Cloudy Urine pH 6.0 (4.5-8.0) Ur Specific [place] 1.015 (1.000-1.035) Urine Protein 2+ H (Negative) Urine Glucose (UA) Negative (Negative) g/dL Urine Ketones Negative (NEGATIVE) Urine Occult Blood 3+ H (Negative) Urine Nitrate Negative (Negative) Urine Bilirubin Negative (NEGATIVE) Urine Urobilinogen 1.0 (0.2) E.U./dL Ur Leukocyte Esterase 2+ H (NEGATIVE) Urine RBC 10-30/hpf H (0-5/HPF) Urine WBC 30-100/hpf H (0-5/HPF) Ur Squamous Epith Cells 1-5 /hpf (0-5/HPF) Urine Bacteria Many (>30) H (None) Ur Culture Indicated? Specimen cultured Vol Urine Centrifuged 10ml (spun) Blood Type Antibody Screen Crossmatch 08/10/24 Range/Units 15:15 WBC (4.5-11.0) X10^3/uL RBC (4.5-5.9) X10^6/uL Hgb 8.0 L (13.5-17.5) g/dL Hct 24.9 L (41-53) % MCV (80-100) fL MCH (26-34) PG MCHC (30-36) % RDW (11.6-14.8) % Plt Count (150-400) X10^3/uL Neut % (Auto) (50-75) % Lymph % (Auto) (25-40) % Becker % (Auto) (3-14) % Eos % (Auto) (2-4) % Baso % (Auto) (0-2) % Neut # (Auto) (8755-6908) /uL Lymph # (Auto) (4529-4386) /uL Becker # (Auto) (0-900) /uL Eos # (Auto) (0-450) /uL Baso # (Auto) (0-100) /uL RBC Morphology Polychromasia Hypochromasia Anisocytosis Microcytosis Macrocytosis Target Cells Tear Drop Cells Ovalocytes Stomatocytes Hampton Cells Acanthocytes (Spur) Schistocytes PT (9.4-12.5) SECONDS INR (0.9-1.3) APTT (25.1-36.5) SECONDS Sodium (137-145) mmol/L Potassium (3.4-5.1) mmol/L Chloride (98-107) mmol/L Carbon Dioxide (22-32) mmol/L BUN (9-20) mg/dL Creatinine (0.66-1.25) mg/dL Estimated GFR (>60) mL/min BUN/Creatinine Ratio (6-22) Glucose (80-110) mg/dL Lactate (0.7-2.1) mmol/L Calcium (8.4-10.2) mg/dL Magnesium (1.6-2.3) mg/dL Total Bilirubin (0.2-1.3) mg/dL AST (17-59) IU/L ALT (<50) IU/L Alkaline Phosphatase (38-126) U/L Total Creatine Kinase (55-170) U/L Troponin I (0.01-0.034) ng/mL NT-Pro-B Natriuret Pep (<125) pg/mL Total Protein (6.3-8.2) g/dL Albumin (3.5-5.0) g/dL Globulin (1.7-4.1) g/dL Albumin/Globulin Ratio (1.0-2.8) Lipase (23-300) U/L Procalcitonin (<0.5) ng/mL Urine Color Urine Appearance Urine pH (4.5-8.0) Ur Specific [place] (1.000-1.035) Urine Protein (Negative) Urine Glucose (UA) (Negative) g/dL Urine Ketones (NEGATIVE) Urine Occult Blood (Negative) Urine Nitrate (Negative) Urine Bilirubin (NEGATIVE) Urine Urobilinogen (0.2) E.U./dL Ur Leukocyte Esterase (NEGATIVE) Urine RBC (0-5/HPF) Urine WBC (0-5/HPF) Ur Squamous Epith Cells (0-5/HPF) Urine Bacteria (None) Ur Culture Indicated? Vol Urine Centrifuged Blood Type Antibody Screen Crossmatch MDM Narrative Medical decision making narrative: 69-year-old ill-appearing cachectic jaundiced male who presents with a blood pressure 90s although patient states this is typical heart rates in the 90s as well O2 sats 100%. Patient has known EF last reported a 16% discussed with patient would benefit from blood as his hemoglobin today is 6.3 was 8.6 in May patient is agreeable to this we did discuss he was high-risk for fluid overload and potentially requiring intubation. Labs show white count 8.7 hemoglobin of 6.3 was 8.6 in May platelets are 340. INR is 3.1. Sodium is 130 potassium 3 point chloride 101 CO2 is 19 BUN 50 0.22 glucose is 122 lactate 3.6 calcium is 8 3 Mag 2.5 bilirubin is 1.6 with a AST through 64 ALT of 451 of 330 total CK is 250 with a troponin of 0.048 [place] [address]. Procalcitonin is 0.349. Repeat troponin is 0.038 EKG shows sinus rhythm has a little bit depression V4 5 not appreciated on repeat EKG questionable intermittently on EKGs from a variety of prior EKGs. Head CT shows no acute change CT cervical spine shows no fracture or traumatic subluxation spez-[id number] degenerative changes. Partially seen pleural effusions enlarged heterogeneous thyroid. Chest x-ray shows probable small effusions and mild lower lung opacities prominent hilar structures likely prominent vasculature consider future image surveillance to assess for resolution. Right upper quadrant ultrasound stoddard secondary to elevated liver enzymes patient has non dilated biliary system, no sonographic Simpson's sign or gallstones trace pericholecystic fluid perihepatic fluid in the setting of low FF heterogeneous increased hepatic echotexture nonspecific possibly hepatocellular disease. Discussed with patient he was agreeable to transfusion of 1 unit we will monitor closely. He has an office visit that shows his pressure was in the 80s and he states 80s to 90s is typical. LFTs are elevated from prior visits suspect there maybe a component of heart failure causing some hepatic reflux but right upper quadrant ultrasound was obtained. Patient did have transferred [facility] in his last day in May he was told that he needs to have his valve replaced he was supposed to follow up with Cardiology at [facility] in the next several weeks. He has not been able to ambulate at home secondary to increasing weakness and shortness of breath likely a combination of his anemia as well as heart failure/aortic stenosis. 2225: Spoke with cardiology, Dr. Denny recommends transfer to a larger facility suspect his changes are all secondary to his aortic stenosis. Discussed with patient he does not wish to return to [facility]. His preferences actually to return but he has not been able to ambulate he does have an echo that shows moderate to severe aortic stenosis with an EF of 15-20% in April of 2026. Discussed with patient and he is unsure about treatment discussed likely needs to see cardiology and have potential valve replacement versus discussion of end of life of goals. Patient is open to transfer [facility] and to seek treatment at other facilities. Called out to multiple facilities Spoke with Dr. Ledesma cardiology at [facility], agrees patient feels appropriate for transfer we will let coordinator no it would be consult with admission to medicine. Hospitalist at [facility] @ [phone] Dr. Khan accepts for transfer. Awaiting bed assignment. Dr Billingsley 7am care assumed -presentation with weakness increasing over the last 4 days and dyspnea worse than his baseline 1. Severe aortic stenosis, ejection fraction below 20% with most recent echo, chronic hypotension with blood pressures consistently in the 90s at home. 2. Worsening anemia with hemoglobin decreasing from 8.7-6.3. Has been transfused 1 unit of packed red cells 3. Increasing liver studies including bilirubin at 1.7, AST of 259, ALT at 364, alk-phos at 286. Ultrasound does not suggest cholecystitis, or ductal dilatation to suggest other obstruction. Suspect that this is secondary to overall decreased cardiac function 4. Discussion with Cardiology, recommendation was transfer to a facility with inpatient Cardiology consultation for consideration of acute treatment for his aortic stenosis thinking that is the primary issue causing his current symptoms. 5. Symptoms are significant enough with progression of chronic disease is significant enough that end of life issues were discussed by Dr. Sharma with the patient. Possibility of discharge home with hospice was discussed, at this point he would like further cardiology assessment to see if interventions are possible/appropriate/of benefit. 140 pm still waiting for return call from [facility]. We have checked throughout the morning with messages left with transfer center 410pm Call from [facility] [place]. With multiple changes of shift, it was unclear if this patient was actually accepted or not. The transfer center indicates she was waiting to hear from the hospitalist whether this would need to be floor, tele or ICU you appropriate. There has been no further interaction with [facility] since 3 this morning. Person with whom I am speaking of the transfer center will talk to hospitalist. Reviewed physicians with whom we spoke last night and indications for transfer. She will get back to us to see if they do have any bed availability Patient re-evaluation, H&H has increased slightly. Patient has been comfortable throughout his ER stay. Still has no appetite. Hemodynamics are at their baseline with heart rate in the 100 range and systolic blood pressure in the [address] Morin, hospitalist. Clarifies Tele bed. Accepted. She will call senior housekeeper and tele bed is reportadly available soon. Bed available, ALS transport has been called Critical Care Time <Elle Hui, - Last Filed: 08/21/24 08:04> Critical Care Time Critical Care Time: Yes Total Critical Care Time: 45 Attestation: The high probability of a clinically significant, sudden or life threatening deterioration of the cardiac and pulmonary system(s) required my full and direct attention, intervention and personal management. The aggregate critical care time was [--] minutes. This time is in addition to time spent performing reported procedures but includes the following: [x] Data Review and interpretation [x] Patient assessment and monitoring of vital signs [x] Documentation [x] Medication orders and management Discharge Plan Departure Patient Disposition: [facility] Clinical Impression: Anemia, Aortic stenosis, severe, CHF (congestive heart failure), Elevated liver enzymes Prescriptions: No Action apixaban 5 mg tablet 5 mg PO BID aspirin [Adult Low Dose Aspirin] 81 mg tablet,delayed release (DR/EC) 81 mg PO DAILY atorvastatin 20 mg tablet 20 mg PO DAILY empagliflozin 10 mg tablet 10 mg PO DAILY finasteride 5 mg tablet 5 mg PO DAILY furosemide 40 mg tablet 40 mg PO DAILY metoprolol succinate 25 mg tablet extended release 24 hr 12.5 mg PO DAILY tamsulosin 0.4 mg capsule 0.4 mg PO BEDTIME midodrine 5 mg tablet 10 mg PO Q8HR PRN (Reason: Hypotension) Referrals: Miscellaneous,Doctor, [Primary Care Provider] -
[2024-08-09 18:25] LABS: Hematocrit 19.7 % (41-53); Hemoglobin 6.3 g/dL (13.5-17.5)
--- NOTE | 2024-08-09 18:36 | DI.CT.S_ITS ---
PROCEDURE: CT CERVICAL SPINE WO CON INDICATIONS: fall, hit head on eliquis 4 days ago TECHNIQUE: Noncontrast 3 mm thick sections acquired from the skull base to the T4 level. Sagittal and coronal reformats were then constructed. For radiation dose reduction, the following was used: automated exposure control, adjustment of mA and/or kV according to patient size. COMPARISON: None. FINDINGS: Image quality: Diagnostic Bones: Wask-ce-mviomqjr cervical spondylotic changes with disc space height loss C6-C7 in particular. Vertebral body heights are well maintained. No traumatic subluxation. 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 Soft tissues: Partially seen bilateral pleural effusions. No pathologic prevertebral soft tissue thickening. Enlarged heterogeneous thyroid. Vascular calcifications IMPRESSION: No displaced fracture or traumatic subluxation. Qlln-nm-prtlxohb degenerative changes. If there is high concern for further derangement, consider MRI evaluation. Partially seen pleural effusions. Enlarged heterogeneous thyroid. Dictated by: Carlos Perez M.D. on 08/09/2024 at 19:53 Approved by: Carlos Perez M.D. on 08/09/2024 at 19:54
--- NOTE | 2024-08-09 18:36 | DI.CT.S_ITS ---
PROCEDURE: CT HEAD/BRAIN WO CON INDICATIONS: fall, hit head on eliquis 4 days ago TECHNIQUE: Noncontrast 4.5 mm thick angled axial sections acquired from the foramen magnum to the vertex, with coronal and sagittal reformats. For radiation dose reduction, the following was used: automated exposure control, adjustment of mA and/or kV according to patient size. COMPARISON: None. FINDINGS: Image quality: Diagnostic CSF spaces: Basal cisterns are patent. Lateral ventricles are symmetric. Volume: Vascular calcifications. Periventricular white matter disease is commonly seen with chronic microangiopathy. Volume loss is present. These findings are moderate Brain: No acute hemorrhage. No gross loss of hdz-white differentiation. Craniofacial structures: Partial opacification of the left maxillary sinus. IMPRESSION: No acute intracranial pathology. Dictated by: Carlos Perez M.D. on 08/09/2024 at 19:52 Approved by: Carlos Perez M.D. on 08/09/2024 at 19:53
[2024-08-09 18:48] LABS: INR 3.1 (0.9-1.3); Prothrombin Time 33.9 SECONDS (9.4-12.5)
[2024-08-09 18:51] LABS: PTT Partial Thromboplastin Tim 34 SECONDS (25.1-36.5)
[2024-08-09 18:52] LABS: Lactate (Lactic Acid) 3.6 mmol/L (0.7-2.1)
[2024-08-09 18:52] LABS: Alanine Aminotransferase 451 IU/L (<50); Albumin 3.2 g/dL (3.5-5.0); Albumin Globulin Ratio 1.1 (1.0-2.8); Alkaline Phosphatase 330 U/L (38-126); Aspartate Aminotransferase 364 IU/L (17-59); BUN Creatinine Ratio 45.1 (6-22); Bilirubin Total 1.6 mg/dL (0.2-1.3); Blood Urea Nitrogen 55 mg/dL (9-20); Calcium 8.3 mg/dL (8.4-10.2); Carbon Dioxide 19 mmol/L (22-32); Chloride 101 mmol/L (98-107); Creatine Kinase 250 U/L (55-170); Estimated Glomerular Filt Rate > 60 mL/min (>60); Glucose 122 mg/dL (80-110); HEMOLYSIS < 15 (0-50); Lipase 254 U/L (23-300); Magnesium 2.4 mg/dL (1.6-2.3); Potassium 3.9 mmol/L (3.4-5.1); Sodium 130 mmol/L (137-145); Total Protein 6.2 g/dL (6.3-8.2)
[2024-08-09 18:54] LABS: Anisocytosis 3+
[2024-08-09 18:55] LABS: Acanthocytes 3+; Burr Cells 1+; Macrocytosis 1+; Microcytosis 1+
[2024-08-09 18:56] LABS: Hypochromasia 1+; Polychromasia 1+; Schistocytes 2+; Target Cells 1+
[2024-08-09 18:57] LABS: Ovalocytes 1+; Stomatocytes 1+; Tear Drop Cells 1+
[2024-08-09 18:58] LABS: Procalcitonin 0.349 ng/mL (<0.5)
[2024-08-09 19:04] LABS: NT-proBNP (BNP-Adult 18+) > 30000 pg/mL (<125); Troponin I 0.048 ng/mL (0.01-0.034)
[2024-08-09] MEDS: SODIUM CHLORIDE 0.9% 1,000 ML 1000 ML IV (19:10)
[2024-08-09] MEDS: LIDOCAINE 2% (GLYDO) 6 ML GEL TOP (19:10)
--- NOTE | 2024-08-09 19:43 | DI.US.S_ITS ---
PROCEDURE: US ABDOMEN LIMITED INDICATIONS: chf, elevated lfts, EF reported 16% TECHNIQUE: Real-time focused scanning was performed of the abdomen, with image documentation. COMPARISON: [facility], CT, CT ABDOMEN PELVIS W CON, 06/06/2024, 22:41. FINDINGS: Liver measures 18 cm. Increased echogenicity and heterogeneous echotexture. Main portal vein appears patent. Mildly distended main portal vein at 1.5 cm. Trace nonspecific pericholecystic fluid. CBD within within normal limits at 5-6 mm. Unremarkable pancreas. Trace free fluid adjacent to the liver. Ectatic IVC. IMPRESSION: Nondilated biliary system by ultrasound. No sonographic Simpson sign or gallstones. Nonspecific trace pericholecystic fluid and perihepatic fluid in the setting of low EF. Heterogeneous and increased hepatic echotexture, nonspecific, possibly hepatocellular disease Dictated by: Carlos Perez M.D. on 08/09/2024 at 21:29 Approved by: Carlos Perez M.D. on 08/09/2024 at 21:31
[2024-08-09 20:03] LABS: Reflexed Lactate in 2 Hours Y
--- NOTE | 2024-08-09 20:06 | EKG_ITS ---
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
[2024-08-09 20:41] LABS: Troponin I 0.038 ng/mL (0.01-0.034)
[2024-08-09 23:09] LABS: Lactate 2HR (Lactic Acid Rflx) 1.7 mmol/L (0.7-2.1)
[2024-08-10] VITALS (49 sets, daily range): BP systolic 89–114; BP diastolic 54–70; PULSE 85–106; RESP 11–34; TEMP 36.6–37.3; O2SAT 97–100
[2024-08-10 06:25] LABS: Add Manual Diff / Slide Review NO; Basophils Absolute Auto 100 /uL (0-100); Basophils Percent Auto 1.1 % (0-2); Eosinophils Absolute Auto 0 /uL (0-450); Eosinophils Percent Auto 0.6 % (2-4); Hematocrit 21.8 % (41-53); Lymphocytes Absolute Auto 1000 /uL (1100-4500); Lymphocytes Percent Auto 13.8 % (25-40); Mean Corpuscular HGB Conc 32.3 % (30-36); Mean Corpuscular Hemoglobin 29.9 PG (26-34); Mean Corpuscular Volume 92.5 fL (80-100); Monocytes Absolute Auto 500 /uL (0-900); Monocytes Percent Auto 7.4 % (3-14); Neutrophils Absolute Auto 5600 /uL (1500-7000); Neutrophils Percent Auto 77.1 % (50-75); Platelet Count 265 X10^3/uL (150-400); Red Blood Cell Count 2.35 X10^6/uL (4.5-5.9); Red Cell Distribution Width 24.8 % (11.6-14.8); White Blood Cell Count 7.2 X10^3/uL (4.5-11.0)
[2024-08-10 06:31] LABS: Alanine Aminotransferase 364 IU/L (<50); Albumin 2.7 g/dL (3.5-5.0); Alkaline Phosphatase 286 U/L (38-126); Aspartate Aminotransferase 259 IU/L (17-59); BUN Creatinine Ratio 52.5 (6-22); Bilirubin Total 1.7 mg/dL (0.2-1.3); Blood Urea Nitrogen 52 mg/dL (9-20); Calcium 8.2 mg/dL (8.4-10.2); Carbon Dioxide 20 mmol/L (22-32); Chloride 103 mmol/L (98-107); Estimated Glomerular Filt Rate > 60 mL/min (>60); Globulin 2.8 g/dL (1.7-4.1); Glucose 105 mg/dL (80-110); HEMOLYSIS < 15 (0-50); Potassium 3.3 mmol/L (3.4-5.1); Sodium 129 mmol/L (137-145); Total Protein 5.5 g/dL (6.3-8.2)
[2024-08-10 06:45] LABS: Hypochromasia 1+
[2024-08-10 06:46] LABS: Burr Cells 1+; Ovalocytes 1+; Schistocytes 1+; Stomatocytes 1+; Target Cells 1+
[2024-08-10 06:47] LABS: Anisocytosis 3+; Macrocytosis 1+; Microcytosis 1+
[2024-08-10] MEDS: POTASSIUM CHLORIDE 20 MEQ TAB 40 MEQ PO (08:01)
--- NOTE | 2024-08-10 08:39 | PC.NURSE ---
AM report received. Pt lying in inpatient bed. On cardiac monitoring. AAOx3. lungs clear. Abd SNT. Skin check well. PWD. Zavala in place with minimal drainage and appears to have some purulence in tubing. Elevated HOB. AM meds given and tolerated well. Eating breakfast. NAD.
[2024-08-10 11:41] LABS: Appearance Urine UA CLOUDY; Bilirubin Urine UA NEGATIVE (NEGATIVE); Color Urine UA YELLOW; Glucose Urine UA NEGATIVE (Negative); Ketones Urine UA NEGATIVE (NEGATIVE); Leukocyte Esterase Urine UA 2+ (NEGATIVE); Nitrite Urine UA NEGATIVE (Negative); Occult Blood Urine UA 3+ (Negative); Protein Urine UA 2+ (Negative); Specific Gravity Urine UA 1.015 (1.000-1.035)
[2024-08-10 11:47] LABS: Urine Volume 10mL (spun)
[2024-08-10 11:48] LABS: Bacteria Urine Many (>30); Culture Indicated Urine Specimen Cultured; RBC Urine 10-30/HPF (0-5/HPF); Squamous Epithelial Cell Urine 1-5 /HPF (0-5/HPF); WBC Urine 30-100/HPF (0-5/HPF)
[2024-08-10 15:26] LABS: Hematocrit 24.9 % (41-53)
--- NOTE | 2024-08-10 16:13 | PC.NURSE ---
Original call out for patient transfer was placed by night time [facility] at [phone]. This day time [facility] has been placing calls with no actual contact with transfer station. Calls placed at [phone], [phone], and [phone], was only able to leave a voicemail. Received a call at [phone] by [facility] Specialist who stated that they were unsure exactly what type of bed was needed. I had Dr. Billingsley take over phone call
== END 2024-08-10 20:00 | disposition short-term general hospital (02) ==
PROVIDERS: Emergency Medicine; Emergency Provider Emergency Medicine
DX: I35.0 Nonrheumatic aortic (valve) stenosis (principal); D64.9 Anemia, unspecified; I50.9 Heart failure, unspecified; I45.2 Bifascicular block; R74.8 Abnormal levels of other serum enzymes; S09.90XA Unspecified injury of head, initial encounter; W18.30XA Fall on same level, unspecified, initial encounter; S49.91XA Unspecified injury of right shoulder and upper arm, initial encounter; I95.9 Hypotension, unspecified; R17 Unspecified jaundice
CPT/HCPCS: 36415; 36430; 70450; 71045; 72125; 76705; 80053; 81001; 82550; 83605; 83690; 83735; 83880; 84145; 84484; 85014; 85018; 85025; 85610; 85730; 86850; 86900; 86901; 87040; 87077; 87086; 87186; 93005; 93010; 96360; 99285; 99291; P9016; G0390